=== PATIENT | female | born 1940 | race Caucasian/White ===

== ENCOUNTER → 2018-02-16 | Outpatient (CLI) | payer MEDICARE, OTHER ==
[~2018-02-16] MED LIST: CIP500 PO
== END ==
LOC: RESP 13:31
PROVIDERS: ATTEND Nurse Practitioner Family
DX: J44.9 Chronic obstructive pulmonary disease, unspecified (principal)
CPT/HCPCS: 36415; 82103; 94060; 94726; 94729

== ENCOUNTER 2018-04-20 09:56 | Outpatient (RCR) | payer MEDICARE, OTHER | END 2018-05-17 | LOC: CARD 09:56 | PROVIDERS: ATTEND Nurse Practitioner Family | DX: J44.9 Chronic obstructive pulmonary disease, unspecified (principal) | CPT/HCPCS: G0424 ×17 ==

== ENCOUNTER → 2018-12-02 | Outpatient (CLI) | payer MEDICARE, OTHER ==
[~2018-12-02] MED LIST changes: +AMLO-127 PO; +ASPI-1471 PO; +CHOL10005 PO; +DOCU100C49 PO; +GLUT25PO PO; +KRIL1CAP6 PO; +LACT1CAP9 PO; +LISI2.5T60 PO; +MULT-1335 PO; +OXYGENHOME INH; +PHYT100T4 PO; +TRIA1CAP85 PO; +UBIQ100C3 PO
[2018-12-02 13:06] LABS: PLATELET COUNT, AUTOMATED 233 K/uL (150-450)
== END ==
LOC: LAB 12:30
PROVIDERS: ATTEND Family Medicine
DX: M79.2 Neuralgia and neuritis, unspecified (principal); I10 Essential (primary) hypertension
CPT/HCPCS: 36415; 82040; 82247; 82306; 82310; 82374; 82435; 82565; 82607; 82947; 84075; 84132; 84155; 84295; 84443; 84450; 84460; 84520; 85025

== ENCOUNTER → 2018-12-21 | Outpatient (CLI) | payer MEDICARE, OTHER ==
[~2018-12-21] MED LIST changes: +LEVO750T44 PO; +PRED20TA6 PO
[2018-12-21 11:32] LABS: PLATELET COUNT, AUTOMATED 206 K/uL (150-450)
--- NOTE | 2018-12-21 12:16 | RADIOLOGY IMAGING REPORT ---
[facility] PATIENT NAME: Suki Burroughs : 1940 MR: [id number] V: [id number] EXAM DATE: ORDERING PHYSICIAN: SRIKANTH MORRISON TECHNOLOGIST: Location: [facility] Patient: Suki Burroughs : 1940 Visit/Account:[id number] Date of Sevice: 12/21/2018 Exam type: CHEST PA LAT History: Cough, shortness of breath, low oxygen saturation Comparison: December 23, 2015. Findings: There is mild hyperinflation of the lungs. No evidence of acute appearing infiltrates, pleural effus ions or pulmonary edema.. No evidence of a pneumothorax or pneumomediastinum The cardiac silhouette is mildly enlarged but unchanged. There is a prosthetic cardiac valve. IMPRESSION: 1. Mild cardiomegaly although no evidence of acute pulmonary consolidation or overt pulmonary edema Report Dictated By: Melida Jose MD at 12/21/2018 12:10 PM Report E-Signed By: Melida Jose MD at 12/21/2018 12:11 PM WSN:[id number]
== END ==
LOC: RAD 11:07
PROVIDERS: ATTEND Nurse Practitioner Primary Care
DX: I51.7 Cardiomegaly (principal); R06.02 Shortness of breath
CPT/HCPCS: 36415; 71046; 82040; 82247; 82310; 82374; 82435; 82565; 82947; 84075; 84132; 84155; 84295; 84450; 84460; 84520; 85025

== ENCOUNTER 2019-01-04 11:15 | Inpatient (IN) | payer MEDICARE, OTHER ==
[~2019-01-04] VITALS: Ht 152.4 cm; Wt 72.7 kg
[2019-01-04] VITALS (20 sets, daily range): BP systolic 95–163; BP diastolic 36–111
--- NOTE | 2019-01-04 11:23 | ER Report ---
History and Physical Time Seen By MD: 11:21 HPI/ROS CHIEF COMPLAINT: Shortness of breath HISTORY OF PRESENT ILLNESS: This is a 78-year-old female who presents to the emergency room for shortness breath. Patient states she's been short of breath for roughly a month, was seen in the outpatient clinic, given antibiotics and a steroid, states did have some improvement, however after the antibiotic and the steroids were done she became increasingly short of breath again. She has a nonproductive cough. No fevers or chills. No nausea or vomiting, no chest pain. She does live in [place] in the plantar months, relocates to [place] during the summer months. She also wears continuous oxygen for COPD. REVIEW OF SYSTEMS: Constitutional: No fever, no chills. Eyes: No discharge. ENT: No sore throat. Cardiovascular: No chest pain, no palpitations. Respiratory: As above. Gastrointestinal: No abdominal pain, no vomiting. Genitourinary: No hematuria. Musculoskeletal: No back pain. Skin: No rashes. Neurological: No headache. Allergies: Coded Allergies: tetracycline (Verified Allergy, Severe, RASH DYSPNEA, 12/23/15) Uncoded Allergies: AMMOXICILLIN (Allergy, Severe, RASH DYSPNEA, 12/22/08) COCACOLA (Allergy, Severe, SCLERA EYES SWELLING UP , 12/22/08) Home Meds Active Scripts Prednisone (PREDNISONE) 20 Mg Tablet, 1 TAB PO BID for 5 Days, #10 TAB 0 Refills Prov:SRIKANTH MORRISON DNP, [facility] 12/21/18 Levofloxacin 750 Mg Tab (LEVAQUIN 750 MG TAB) 750 Mg Tablet, 1 TAB PO QDAY for 7 Days, #7 TAB 0 Refills Prov:SRIKANTH MORRISON DNP, [employer] 12/21/18 Reported Medications Aspirin (ASPIR 81) 81 Mg Tablet.dr, 1 TAB PO QHS, TAB 12/02/18 Krill/Om3/Dha/Epa/Om6/Lip/Astx (KRILL OIL 1,000 MG SOFTGEL) 1 Each Capsule, 1 CAP PO DAILY, CAPSULE 12/02/18 Oxygen (OXYGEN) Inha, 2 L INH DIRECTED, L [facility] 12/02/18 Lisinopril (LISINOPRIL) 2.5 Mg Tablet, 1 TAB PO QDAY 12/02/18 Lactobacillus Combo No.10 (PROBIOTIC) Unknown Strength Capsule, 1 CAP PO QHS 07/06/18 Glutathione (GLUTATHIONE) Unknown Strength Powder, 1 CAP PO DAILY 07/06/18 Multivitamin With Minerals (MULTIPLE VITAMIN) Unknown Strength Tablet, 1 TAB PO QDAY 07/06/18 Phytonadione (VITAMIN K) Unknown Strength Tablet, 1 TAB PO DAILY Vit k1 500mcg Vit K2-4 1000mcg Vit k2-7 200mcg 07/06/18 Cholecalciferol (Vitamin D3) (VITAMIN D3) Unknown Strength Tablet, PO QDAY, TAB 07/06/18 Ubiquinol (UBIQUINOL) Unknown Strength Capsule, 150 MG PO DAILY 07/06/18 Amlodipine Besylate (AMLODIPINE BESYLATE) 10 Mg Tablet, 1 TAB PO QHS 07/06/18 Past Medical/Surgical History Patient has a past medical and surgical history of hypertension, aortic valve replacement, emphysema, COPD, hard of hearing, left hip replacement, left rot ator cuff repair. Reviewed Nurses Notes: Yes Hx Smoking: Yes Smoking Status: Former Smoker Constitutional Vital Sign - Last 24 Hours 01/04/19 01/04/19 01/04/19 01/04/19 11:20 11:25 11:25 11:30 Temp 98.2 Pulse 141 137 124 Resp 24 33 20 B/P (MAP) 138/72 (94) 138/72 136/59 (84) Pulse Ox 81 95 92 O2 Delivery Nasal Cannula 01/04/19 01/04/19 01/04/19 01/04/19 11:35 11:40 11:45 11:49 Pulse 129 146 135 Resp 22 27 32 Pulse Ox 94 87 94 93 O2 Delivery Nasal Cannula O2 Flow Rate 5.0 01/04/19 01/04/19 01/04/19 01/04/19 11:49 11:50 11:55 11:55 Pulse 124 131 114 121 Resp 18 15 30 18 Pulse Ox 96 92 01/04/19 01/04/19 01/04/19 01/04/19 12:00 12:05 12:10 12:15 Pulse 116 143 131 126 Resp 15 22 33 51 B/P (MAP) 133/96 (108) Pulse Ox 93 94 94 94 01/04/19 01/04/19 01/04/19 01/04/19 12:20 12:25 12:30 12:35 Pulse 131 114 101 113 Resp 31 30 28 30 B/P (MAP) 95/75 (82) Pulse Ox 92 93 92 94 6/18/19 6/18/19 6/18/19 618/19 12:40 12:45 12:50 12:55 Pulse 121 109 114 111 Resp 17 17 35 21 Pulse Ox 94 94 93 94 6/18/19 6/18/19 6/18/19 6/18/ 13:00 13:05 13:10 13:15 Pulse 114 ? Resp 17 B/P (MAP) 121/76 (91) Pulse Ox 94 6/18/19 6/18/19 6/18/19 6/18/ 13:20 13:24 13:25 13:30 Pulse 128 125 117 Resp 31 16 14 B/P (MAP) 116/68 (84) 109/77 (88) Pulse Ox 93 93 93 6/18/19 6/18/19 6/18/19 618/ 13:35 13:40 13:45 13:50 Pulse 126 114 118 117 Resp 23 27 18 23 Pulse Ox 91 91 91 92 6/18/19 6/18/19 6/18/19 618/19 13:55 13:57 14:00 14:05 Pulse 122 124 138 Resp 30 31 21 B/P (MAP) 90/67 (75) 107/54 (71) 106/92 (97) Pulse Ox 89 92 93 6/18/19 6/18/19 6/18/19 6/18/19 14:10 14:15 14:20 14:25 Pulse 122 122 138 125 Resp 28 24 35 27 B/P (MAP) 132/81 (98) 122/63 (82) 123/80 (94) 117/64 (81) Pulse Ox 92 91 86 91 O2 Delivery Nasal Cannula O2 Flow Rate 5 Physical Exam General Appearance: The patient is alert, has no immediate need for airway protection and no signs of toxicity. Eyes: Pupils equal and round no pallor or injection. ENT, Mouth: Mucous membranes are moist. Respiratory: Diminished lung sounds throughout, minimal air movement. Cardiovascular: Irregular rate and rhythm, no murmurs, clicks or rubs. Gastrointestinal: Abdomen is soft and non tender, no masses, bowel sounds normal. Neurological: Alert and oriented 4. Moving all extremities. Following all commands. No focal neuro deficits. Skin: Warm and dry, no rashes. Musculoskeletal: Neck is supple non tender. Extremities are nontender, nonswollen and have full range of motion. DIFFERENTIAL DIAGNOSIS: After history and physical exam differential diagnosis was considered for shortness of breath including but not limited to pulmonary infectious process, COPD, asthma, pulmonary embolus and congestive heart failure. Medical Decision Making Data Points Result Diagram: 01/04/19 1126 01/04/19 1126 Laboratory Hematology Test 01/04/19 00:00 01/04/19 11:26 Thyroid Stimulating Hormone (TSH) 0.87 uIU/ml (0.46-4.68) Red Blood Count 3.86 M/uL (4.17-5.56) Mean Corpuscular Volume 93.8 fL (80.0-96.0) Mean Corpuscular Hemoglobin 31.1 pg (26.0-33.0) Mean Corpuscular Hemoglobin Concent 33.2 g/dL (32.0-36.0) Red Cell Distribution Width 14.0 % (11.5-14.5) Mean Platelet Volume 7.5 fL (7.2-11.1) Neutrophils (%) (Auto) 75.4 % (39.4-72.5) Lymphocytes (%) (Auto) 16.8 % (17.6-49.6) Monocytes (%) (Auto) 6.9 % (4.1-12.4) Eosinophils (%) (Auto) 0.3 % (0.4-6.7) Basophils (%) (Auto) 0.6 % (0.3-1.4) Nucleated RBC Relative Count (auto) 0.0 /100WBC Neutrophils # (Auto) 9.8 K/uL (2.0-7.4) Lymphocytes # (Auto) 2.2 K/uL (1.3-3.6) Monocytes # (Auto) 0.9 K/uL (0.3-1.0) Eosinophils # (Auto) 0.0 K/uL (0.0-0.5) Basophils # (Auto) 0.1 K/uL (0.0-0.1) Nucleated RBC Absolute Count (auto) 0.00 K/uL D-Dimer Quantitative (PE/DVT) 1.32 ug/ml (0-0.50) Sodium Level 137 mmol/L (137-145) Potassium Level 3.3 mmol/L (3.5-5.0) Chloride Level 94 mmol/L (98-107) Carbon Dioxide Level 30 mmol/L (22-31) Blood Urea Nitrogen 18 mg/dl (7-18) Creatinine 1.40 mg/dl (0.52-1.04) Glomerular Filtration Rate Calc 36.4 Random Glucose 127 mg/dl (75-110) Lactate 1.8 mmol/L (0.7-2.1) Calcium Level 9.1 mg/dl (8.4-10.2) Magnesium Level 2.0 mg/dl (1.7-2.2) Total Bilirubin 0.9 mg/dl (0.2-1.3) Aspartate Amino Transf (AST/SGOT) 30 U/L (0-35) Alanine Aminotransferase (ALT/SGPT) 42 U/L (0-56) Alkaline Phosphatase 88 U/L (0-126) Troponin I 0.033 ng/ml B-Type Natriuretic Peptide 683 pg/ml (0-100) Total Protein 7.6 g/dl (6.3-8.2) Albumin 4.1 g/dl (3.5-5.0) Chemistry Test 01/04/19 00:00 01/04/19 11:26 Thyroid Stimulating Hormone (TSH) 0.87 uIU/ml (0.46-4.68) White Blood Count 13.0 k/uL (4.5-11.0) Red Blood Count 3.86 M/uL (4.17-5.56) Hemoglobin 12.0 g/dL (12.0-16.0) Hematocrit 36.1 % (34.0-47.0) Mean Corpuscular Volume 93.8 fL (80.0-96.0) Mean Corpuscular Hemoglobin 31.1 pg (26.0-33.0) Mean Corpuscular Hemoglobin Concent 33.2 g/dL (32.0-36.0) Red Cell Distribution Width 14.0 % (11.5-14.5) Platelet Count 203 K/uL (150-450) Mean Platelet Volume 7.5 fL (7.2-11.1) Neutrophils (%) (Auto) 75.4 % (39.4-72.5) Lymphocytes (%) (Auto) 16.8 % (17.6-49.6) Monocytes (%) (Auto) 6.9 % (4.1-12.4) Eosinophils (%) (Auto) 0.3 % (0.4-6.7) Basophils (%) (Auto) 0.6 % (0.3-1.4) Nucleated RBC Relative Count (auto) 0.0 /100WBC Neutrophils # (Auto) 9.8 K/uL (2.0-7.4) Lymphocytes # (Auto) 2.2 K/uL (1.3-3.6) Monocytes # (Auto) 0.9 K/uL (0.3-1.0) Eosinophils # (Auto) 0.0 K/uL (0.0-0.5) Basophils # (Auto) 0.1 K/uL (0.0-0.1) Nucleated RBC Absolute Count (auto) 0.00 K/uL D-Dimer Quantitative (PE/DVT) 1.32 ug/ml (0-0.50) Glomerular Filtration Rate Calc 36.4 Lactate 1.8 mmol/L (0.7-2.1) Calcium Level 9.1 mg/dl (8.4-10.2) Magnesium Level 2.0 mg/dl (1.7-2.2) Total Bilirubin 0.9 mg/dl (0.2-1.3) Aspartate Amino Transf (AST/SGOT) 30 U/L (0-35) Alanine Aminotransferase (ALT/SGPT) 42 U/L (0-56) Alkaline Phosphatase 88 U/L (0-126) Troponin I 0.033 ng/ml B-Type Natriuretic Peptide 683 pg/ml (0-100) Total Protein 7.6 g/dl (6.3-8.2) Albumin 4.1 g/dl (3.5-5.0) Coagulation Test 01/04/19 11:26 D-Dimer Quantitative (PE/DVT) 1.32 ug/ml EKG/Imaging EKG Interpretation 12 lead EKG: Time of EKG 1142. Rhythm: Atrial fibrillation, rate of 120 bpm. [place]: normal QRS: normal ST segments: No ST depression or elevation identified. Current EKG is different from the 12/23/2015 EKG, previous EKG showing normal sinus rhythm, with rate of 68 bpm. Imaging PATIENT NAME: Suki Burroughs : 1940 MR: [id number] V: [id number] EXAM DATE: ORDERING PHYSICIAN: ARJUN ROMERO TECHNOLOGIST: Location: [facility] [place] Patient: Suki Burroughs : 1940 Visit/Account:[id number] Date of Sevice: 01/04/2019 CT CTA CHEST W & W/O CON HISTORY: tachy, elevated dimer, eval for PE One of the following dose optimization techniques was utilized in the performance of this exam: Automated exposure control; adjustment of the mA and/or kV according to the patient's size; or use of an iterative reconstruction technique. Specific details can be referenced in the facility's radiology CT exam operational policy. TECHNIQUE: CTA chest with contrast. 3D coronal slab MIPs and 2D reconstructions in the coronal and sagittal planes were also created. CONTRAST: 75 cc of Isovue-370 COMPARISON: None. FINDINGS: Vessels: Well-opacified pulmonary arteries with no pulmonary emboli identified. Atherosclerotic disease within the nonaneurysmal aorta. Heart and pericardium: Aortic valve. Mediastinum and hilum: Negative. Lymph nodes: Negative. Lungs/pleura: Centrilobular emphysematous changes noted throughout both lung olguin. Passive atelectatic lung changes in both lung bases. There is a elliptical pleural-based density seen in the posterior medial aspect of the left lower lobe superior aspect measuring 1.7 x 0.9 cm (image 59 series 5) no add itional parenchymal mass lesions identified. The tracheal and bronchial airways well-maintained. Visualized upper abdomen: Negative. Lower neck: Negative. Bones/soft tissues: Negative. IMPRESSION: 1. Negative CT scan of the chest for pulmonary embolus. 2. Centrilobular emphysematous changes noted throughout both lung olguin with associated passive atelectatic lung changes at both lung bases right slightly greater than left. 3. Pleural-based ellipsoid roundish mass in the superior posterior medial aspect of the left lower lung. Options include short-term 3 month follow-up versus PET and/or CT directed biopsy. Report Dictated By: Min Giron MD at 01/04/2019 1:32 PM Report E-Signed By: Min Giron MD at 01/04/2019 1:48 PM WSN:[id number] PATIENT NAME: Suki Burroughs : 1940 MR: [id number] V: [id number] EXAM DATE: ORDERING PHYSICIAN: ARJUN ROMERO TECHNOLOGIST: Location: [facility] [place] Patient: Suki Burroughs : 1940 Visit/Account:[id number] Date of Sevice: 01/04/2019 Study: Single portable view of the chest. Indication: Shortness of breath Comparison study: December 21, 2018 Technique: Single AP view of the chest demonstrates no evidence of acute infiltrate. There is no evidence of pleural effusion or pneumothorax. The mediastinal, cardiac, and diaphragmatic contours are unremarkable. IMPRESSION: Unremarkable chest. Report Dictated By: Syed Oh at 01/04/2019 12:19 PM Report E-Signed By: Syed Oh at 01/04/2019 12:20 PM WSN:[email or web address] ED Course/Re-evaluation Clinical Indication for ER IV: Hydration, IV Access ED Course The patient was admitted to room. A history and physical obtained. Differential diagnoses were considered. IV was started. A CBC, CMP, lactate, troponin and d- dimer obtained. A 1 L normal saline bolus was given. One DuoNeb administered. 125 mg IV Solu-Medrol.CBC showing white count of 13, left shift, this could represent current infectious process, or from recent steroid use, normal lactate, BNP 683, d-dimer 1.32, troponin 0.033. Single view chest x-ray negative for any acute cardiopulmonary process. EKG showing new-onset atrial fibrillation. Patient did have a positive d-dimer, CT of the chest negative for pulmonary embolus, However does show emphysema, there is also a mass on the left lower lung, urination is a PET scan or repeat CT within 3 months, I did review the results with the patient. Given the patient's outpatient failure, increased shortness of breath, new-onset intrafibrillation I did recommend an admission to the hospital, patient was agreeable, I did speak with Dr. Mayfield, the hospitalist on-call, he is accepting the patient into the hospitalist services for new-onset atrial fibrillation, COPD of the emphysema type and a pulmonary m ass. Given a 20 mg IV diltiazem push, and the patient's rate did improve down from the 130s 120s to 90s to 110. Patient appears more comfortable, she was started on a 5 mg an hour diltiazem drip, blood pressure remained stable. 01/04/2019 12:36:58 pm with the elevated d-dimer I did recommend a CT of the chest to evaluate for pulmonary embolus she has been tachycardic and short of breath. 01/04/2019 1:01:00 pm the patient's GFR is less than 40, he did speak with the radiologist, he unable felt the renal function would be okay, she's received a liter fluid, in addition to this I do feel that the test is warranted, she is tachycardic, new-onset A. fib, and short of breath, with an elevated d-dimer. 01/04/2019 2:22:40 pm I did speak with Dr. Martinez-Bridger the hospitalist individual pension consultant, deciding to either admit to medical floor or ICU at this time. 01/04/2019 2:51:38 pm the patient will be admitted to the ICU, for new onset A. fib, COPD and emphysema. Decision to Disposition Date: Jan 04, 2019 Decision to Disposition Time: 14:51 Depart Departure Latest Vital Signs Vital Signs Date Time Temp Pulse Resp B/P (MAP) Pulse Ox O2 Delivery O2 Flow Rate FiO2 01/04/19 14:25 125 27 117/64 (81) 91 Nasal Cannula 5 01/04/19 11:25 98.2 Impression: Primary Impression: New onset atrial fibrillation Additional Impressions: COPD (chronic obstructive pulmonary disease) Pulmonary mass Condition: Improved Disposition: Admitted from ER Referrals: ZULMA HEAD MD (PCP) Problem Qualifiers Additional Impressions: COPD (chronic obstructive pulmonary disease) COPD type: emphysema Emphysema type: unspecified Qualified Codes: J43.9 - Emphysema, unspecified ARJUN ROMERO DISPLAY MECHANIC- Jan 04, 2019 11:23
[2019-01-04] MEDS ORDERED: NS(*) 0.9% 1000 ML BAG 1,000 ML IV ONE (11:37)
[2019-01-04] MEDS ORDERED: MAGNESIUM SUL* 2 GM/50 ML IVPB 50 ML IVPB ONE (11:40)
[2019-01-04] MEDS ORDERED: methylPREDNIS SUCC 125 MG/2ML IVP ONE (11:40)
[2019-01-04] MEDS ORDERED: ALBUTEROL/IPRATROPIUM 3 ML NEB NEB ONE ×2 (11:40→15:00)
[2019-01-04 11:48] LABS: PLATELET COUNT, AUTOMATED 203 K/uL (150-450)
--- NOTE | 2019-01-04 12:03 | EKG ---
FACILITY: [facility] [place] PATIENT NAME: FRANTZ NAILS : [id number] MR: [id number] V: [id number] EXAM DATE: ORDERING PHYSICIAN: ARJUN ROMERO TECHNOLOGIST: Test Reason : tachycardia Blood Pressure : / mmHG Vent. Rate : 120 BPM Atrial Rate : 156 BPM P-R Int : 000 ms QRS Dur : 082 ms QT Int : 292 ms P-R-T Axes : 000 022 067 degrees QTc Int : 412 ms Atrial fibrillation with rapid ventricular response No previous ECGs available Confirmed by Parmjit Jimenez ([id number]) on 01/04/2019 8:30:25 PM Referred By: Confirmed By:Parmjit Sparks
[2019-01-04] MEDS ORDERED: DILTIAZEM 5 MG/ML 5ML IVPUSH IVP ONE (12:20)
--- NOTE | 2019-01-04 12:27 | RADIOLOGY IMAGING REPORT ---
FACILITY: [facility] [place] PATIENT NAME: Suki Burroughs : 1940 MR: [id number] V: [id number] EXAM DATE: ORDERING PHYSICIAN: ARJUN ROMERO TECHNOLOGIST: Location: [facility] Patient: Suki Burroughs : 1940 Visit/Account:[id number] Date of Sevice: 01/04/2019 Study: Single portable view of the chest. Indication: Shortness of breath Comparison study: December 21, 2018 Technique: Single AP view of the chest demonstrates no evidence of acute infiltrate. There is no evid ence of pleural effusion or pneumothorax. The mediastinal, cardiac, and diaphragmatic contours are un remarkable. IMPRESSION: Unremarkable chest. Report Dictated By: Syed Oh at 01/04/2019 12:19 PM Report E-Signed By: Syed Oh at 01/04/2019 12:20 PM WSN:[email or web address]
[2019-01-04] MEDS ORDERED: IOPAMIDOL 76% 100 ML INFUS BTL 100 ML ONE (12:44)
[2019-01-04] MEDS ORDERED: NS(*) 0.9% 50 ML BAG 50 ML ONE (12:45)
[2019-01-04] MEDS ORDERED: DILTIAZEM HCL 125 MG/25 ML SDV 125 MG in NS(*) 0.9% 100 ML BAG 100 ML IV ONE (13:30)
--- NOTE | 2019-01-04 13:52 | RADIOLOGY IMAGING REPORT ---
[place] [facility] [place] Suki Burroughs : 1940 MR: [id number] V: [id number] EXAM DATE: ORDERING PHYSICIAN: ARJUN ROMERO TECHNOLOGIST: Location: [facility] Patient: Suki Burroughs : 1940 Visit/Account:[id number] Date of Sevice: 01/04/2019 CT CTA CHEST W & W/O CON HISTORY: tachy, elevated dimer, eval for PE One of the following dose optimization techniques was utilized in the performance of this exam: Autom ated exposure control; adjustment of the mA and/or kV according to the patient's size; or use of an i terative reconstruction technique. Specific details can be referenced in the facility's radiology C T exam operational policy. TECHNIQUE: CTA chest with contrast. 3D coronal slab MIPs and 2D reconstructions in the coronal and sagittal planes were also created. CONTRAST: 75 cc of Isovue-370 COMPARISON: None. FINDINGS: Vessels: Well-opacified pulmonary arteries with no pulmonary emboli identified. Atherosclerotic dise ase within the nonaneurysmal aorta. Heart and pericardium: Aortic valve. Mediastinum and hilum: Negative. Lymph nodes: Negative. Lungs/pleura: Centrilobular emphysematous changes noted throughout both lung olguin. Passive atelect atic lung changes in both lung bases. There is a elliptical pleural-based density seen in the posteri or medial aspect of the left lower lobe superior aspect measuring 1.7 x 0.9 cm (image 59 series 5) no additional parenchymal mass lesions identified. The tracheal and bronchial airways well-maintained. Visualized upper abdomen: Negative. Lower neck: Negative. Bones/soft tissues: Negative. IMPRESSION: 1. Negative CT scan of the chest for pulmonary embolus. 2. Centrilobular emphysematous changes noted throughout both lung olguin with associated passive atel ectatic lung changes at both lung bases right slightly greater than left. 3. Pleural-based ellipsoid roundish mass in the superior posterior medial aspect of the left lower jannette ng. Options include short-term 3 month follow-up versus PET and/or CT directed biopsy. Report Dictated By: Min Giron MD at 01/04/2019 1:32 PM Report E-Signed By: Min Giron MD at 01/04/2019 1:48 PM WSN:[id number]
[2019-01-04] MEDS ORDERED: ACETAMINOPHEN 325 MG TAB PO PRN (15:55)
[2019-01-04] MEDS ORDERED: FLUSH 10 ML SYR IVP PRN (15:55)
[2019-01-04] MEDS ORDERED: NS(*) 0.9% 1000 ML BAG 1,000 ML IV PRN (16:00)
[2019-01-04] MEDS: KCL (*) 20 MEQ/100 ML PREMIX 100 ML IV SCH ×2 (16:14→18:21)
[2019-01-04] MEDS ORDERED: ALBUTEROL/IPRATROPIUM 3 ML NEB NEB PRN (19:45)
--- NOTE | 2019-01-04 19:49 | History & Physical ---
History of Present Illness Chief Complaint SOB History of Present Illness 78F presented with 2 weeks SOB. PMHx significant for COPD on O2, HTN, aortic stenosis post TAVR 2016. Reports SOB for a while now maybe 2 weeks. Was seen and given steroid and antibiotic in PCP office. Today had continued SOB and pulse oximeter noted to show 150's for pulse. Presented for evaluation, in ER found to have afib with RVR, elevated d-dimer, elevated creatinine, increased O2 demands. Heart rate slowed come with diltiazem, started on drip. d-dimer elevated but CTA negative for embolism there was incidental LLL rounded density which will need follow up with CT or biopsy. Admitted to ICU for further management. History Problems: (1) COPD (chronic obstructive pulmonary disease) Home Meds Reported Medications Aspirin (ASPIR 81) 81 Mg Tablet.dr, 1 TAB PO QHS, TAB 12/02/18 Krill/Om3/Dha/Epa/Om6/Lip/Astx (KRILL OIL 1,000 MG SOFTGEL) 1 Each Capsule, 1 CAP PO DAILY, CAPSULE 12/02/18 Oxygen (OXYGEN) Inha, 2 L INH DIRECTED, L [facility]xygen 12/02/18 Lactobacillus Combo No.10 (PROBIOTIC) Unknown Strength Capsule, 1 CAP PO QHS 07/06/18 Glutathione (GLUTATHIONE) Unknown Strength Powder, 1 CAP PO DAILY 07/06/18 Phytonadione (VITAMIN K) Unknown Strength Tablet, 1 TAB PO DAILY Vit k1 500mcg Vit K2-4 1000mcg Vit k2-7 200mcg 07/06/18 Cholecalciferol (Vitamin D3) (VITAMIN D3) Unknown Strength Tablet, PO QDAY, TAB 07/06/18 Ubiquinol (UBIQUINOL) Unknown Strength Capsule, 150 MG PO DAILY 07/06/18 Amlodipine Besylate (AMLODIPINE BESYLATE) 10 Mg Tablet, 1 TAB PO QHS 07/06/18 Discontinued Reported Medications Lisinopril (LISINOPRIL) 2.5 Mg Tablet, 1 TAB PO QDAY 12/02/18 Multivitamin With Minerals (MULTIPLE VITAMIN) Unknown Strength Tablet, 1 TAB PO QDAY 07/06/18 Discontinued Scripts Prednisone (PREDNISONE) 20 Mg Tablet, 1 TAB PO BID for 5 Days, #10 TAB 0 Refills Prov:SRIKANTH MORRISON DNP, ADDING MACHINE MECHANIC-BC 12/21/18 Levofloxacin 750 Mg Tab (LEVAQUIN 750 MG TAB) 750 Mg Tablet, 1 TAB PO QDAY for 7 Days, #7 TAB 0 Refills Prov:SRIKANTH MORRISON Perla DNP, ADDING MACHINE MECHANIC-BC 12/21/18 Allergies: Coded Allergies: tetracycline (Verified Allergy, Severe, RASH DYSPNEA, 12/23/15) Uncoded Allergies: AMMOXICILLIN (Allergy, Severe, RASH DYSPNEA, 12/22/08) COCACOLA (Allergy, Severe, SCLERA EYES SWELLING UP , 12/22/08) Patient History: FH: COPD (chronic obstructive pulmonary disease) BROTHER OR SISTER BROTHER OR SISTER FH: type 2 diabetes MOTHER, , Age:75 BROTHER OR SISTER PAT. GRANDMOTHER Hx Smoking: Yes Smoking Status: Former Smoker Exposure to Second Hand Smoke?: No When Quit Tobacco?: 1999 Caffeine Intake: Coffee Caffeine/Cups Per Day: 2 CUPS DAILY Hx Alcohol Use: Yes Alcohol Used: Wine Hx Substance Use Disorder: No Social Drug Use: Never Review of Systems All Systems Reviewed/Normal: Yes, Except as Noted Neurological: No Confusion, No Dizziness Cardiovascular: No Chest Pain, No Palpitations Respiratory: Shortness of Breath Exam Vital Signs Vital Signs Date Time Temp Pulse Resp B/P (MAP) Pulse Ox O2 Delivery O2 Flow Rate FiO2 01/04/19 19:20 91 01/04/19 18:00 26 114/36 (62) Nasal Cannula 5.0 01/04/19 17:30 92 01/04/19 15:30 98.8 General Appearance: Alert, Awake, No Acute Distress, Afebrile Neuro: No Gross deficits ENT: Normal Cardiovascular: Other (irregularly irregular) Respiratory: Other (mild distress, tachypneic, decreased breath sounds b/l) GI: Abd Soft and Non-Tender Musculoskeletal: No Weakness/Pain Extremities: Soft and Non Tender, Warm, Pulses, Perfused, Edema (mild pitting to knees b/l) Medical Decision Making Data Points Result Diagram: 01/04/19 1126 01/04/19 1126 EKG / Imaging EKG Interpretation afib with RVR Monitor Interpretation: Atrial Fibrillation (with RVR) Assessment and Plan Problems: (1) Atrial fibrillation Assessment & Plan: New onset with RVR. Improving on diltiazem. Recommend anticoagulation but she wishes to wait to see if atrial fibrillation continues. BP stable, tachypnea improving. (2) COPD (chronic obstructive pulmonary disease) Assessment & Plan: 2L O2 continuous at altitude, 2-4 L with exertion. Tachypnea improving with rate control. She is not on any inhaled medications. (3) Pulmonary mass Status: Acute Assessment & Plan: Follow up CT in 3 months or consider biopsy of LLL density. (4) CKD (chronic kidney disease) Assessment & Plan: Baseline Cr appears to be 1.1-1.4, monitor. (5) Elevated brain natriuretic peptide (BNP) level Assessment & Plan: Possibly secondary to atrial fibrillation or CKD. Records form 2017 in [place] show normal EF. Venous Thromboembolism Antithrombotics Is Pt On Any Antithrombotics?: Yes Exam Sepsis Risk: No Definite Risk DELACRUZ IVONNE ROUSE DO Jan 04, 2019 19:49
[2019-01-04] MEDS ORDERED: APIXABAN 2.5 MG TABLET PO SCH (21:00)
[2019-01-05] VITALS (13 sets, daily range): BP systolic 98–163; BP diastolic 54–94
[2019-01-05] MEDS ORDERED: DILTIAZEM HCL* 100 MG ADDVIAL 100 MG in NS(*) 0.9% 100 ML ADDVANT BAG 100 ML IV SCH (00:38)
[2019-01-05] MEDS ORDERED: cefTRIAXone 1 GM VIAL IVP ONE (01:25)
[2019-01-05 05:28] LABS: PLATELET COUNT, AUTOMATED 160 K/uL (150-450)
[2019-01-05] MEDS ORDERED: LEVALBUTEROL 1.25 MG/3 ML NEB NEB PRN (07:45)
[2019-01-05] MEDS: LEVALBUTEROL 1.25 MG/3 ML NEB NEB SCH ×3 (07:45→16:55)
[2019-01-05] MEDS ORDERED: DILTIAZEM CD 180 MG CAPCR PO SCH (09:00)
[2019-01-05] MEDS ORDERED: ENOXAPARIN 30 MG/0.3 ML SYR SC SCH (09:00)
--- NOTE | 2019-01-05 09:10 | Antimicrobial Stewardship ---
Antimicrobial Stewardship Empiricly appropriate: Yes Significant PMH: Yes (TAVR, afib, L LEROY (2007), CKD ) Support empiric regimen: Yes (Ceftriaxone 2g IV daily) Approriate Cultures done: No (Blood cultures drawn, only one set, both bottles positive. ID and sens pending) Cultures need repeate: Yes (Recommend repeat cultures at 48 hours) Gram stain show Microbs: Yes (Growing GPC in chains ) Renal/Hepatic dosing: Yes (Scr 1.4, CrCL ~37 ml/min) Determine cumulative duration: 01/05/19- Day 1, today is day 2 of Ceftriaxone Determine standard duration: Depending on source- likely 7-14 days Comment 78 yo F who presented with a month long history of SOB, worsening over the last month. Was seen in outpt clinic and started on antibiotics and steroids. She does have a positive smoking history. Her PMH includes CKD, TAVR 2015, L LEROY 2007, and now afib with RVR, mini stroke in 2017. She was also on lisinopril over a month ago that was stopped due to chronic cough Tmax afebrile WBC 13-10.2 Neuts 75%- 90.8 Scr 1.4 CrCl ~37 ml/min D-dimer 1.32 BNP 683 TSH 0.87 CTA - (-) PE, (+) findings to suggest suspicious mass LLL of the lung In afib with RVR, started on diltiazem drip, switched to oral Discussion about anticoagulation for afib in the setting of TAVR (done at [facility] in 2016) Antibiotics: Ceftriaxone 2g IV daily Blood Cx x 1 pending ID and sens: growing GPC in chains in both anaerobic and aerobic bottles Continue Ceftriaxone 2g IV daily for now, plan to repeat blood cultures tomorrow. Echo done, will await results from cardiology. Plan to complete a UA via straight cath to rule out source of infection (pt is asymptomatic). Will follow and de-escalate as appropriate. Olga Curtis, PharmD, BCOP OLGA CURTIS Jan 05, 2019 08:45
--- NOTE | 2019-01-05 09:40 | Hospitalist Progress Note ---
Subjective Progress Notes Subjective Less SOB since admission. Slept and has an appetite. Physical Exam Vital Signs Date Time Temp Pulse Resp B/P (MAP) Pulse Ox O2 Delivery O2 Flow Rate FiO2 01/05/19 07:21 122/61 (81) 01/05/19 07:20 92 Nasal Cannula 4.0 01/05/19 07:20 92 01/05/19 07:00 97.6 23 Intake and Output 01/05/19 07:01 Intake Total 2408 ml Output Total 950 ml Balance 1458 ml Intake Oral 600 ml IV Total 1808 ml Output Urine Total 950 ml General Appearance: Alert, Awake, No Acute Distress Cardiovascular: Other (irreg irreg, no m/r/g) Respiratory: Other (left insp basilar crackles) Extremities: No Edema Result Diagram: 01/05/1945601/05/19456 Monitor Interpretation: Atrial Fibrillation (with RVR) Assessment and Plan Problems: (1) Atrial fibrillation Assessment & Plan: Presented with 2 days of worsening SOB and noticed a high HR at home into the 140's. New onset with RVR. Rate controlled on diltiazem drip. Switch to oral diltiazem. Start Eliquis and see what her co-pay will be. Echo pending. TSH 0.87. (2) Positive blood culture Status: Acute Assessment & Plan: Only one blood culture drawn, but she is positive in both aerobic and anaerobic within 12 hours of the draw. Afebrile. No infiltrate on CT of chest. UA pending. She was started on Rocephin last night, which will be continued. Echo pending. Recheck blood cultures with CRP tomorrow. She did have a prosthetic hip placed in 2007 and does have the TAVR. (3) COPD (chronic obstructive pulmonary disease) Assessment & Plan: 2L O2 continuous at altitude, 2-4 L with exertion. Tachypnea improving with rate control. She is not on any inhaled medications, but going to start scheduled and prn Xopenex. (4) Elevated brain natriuretic peptide (BNP) level Assessment & Plan: Possibly secondary to atrial fibrillation or CKD. Records form 2017 in [place] show normal EF. Echo pending. Repeat BNP tomorrow. (5) Pulmonary mass Status: Acute Assessment & Plan: Follow up CT in 3 months or consider f/u with Oncology for a possible biopsy of LLL density. The patient was informed and she is going to think about what she wants to do. (6) CKD (chronic kidney disease) Assessment & Plan: Baseline Cr appears to be 1.1-1.4, monitor. Exam Sepsis Risk: No Definite Risk PEMA CASAS MD Jan 05, 2019 09:40
[2019-01-05] MEDS: APIXABAN 2.5 MG TABLET PO SCH ×2 (09:57→20:16)
--- NOTE | 2019-01-05 14:48 | Medical Nutrition Therapy ---
Nutrition Anthropometrics Height (Inches): 60.00 Height (Calculated Centimeters: 152.197385 Weight (Pounds): 156 Weight (Calculated Kilograms): 70.817 BMI: 30.5 Jesus Nutrition Score: Adequate Jesus Nutrition Risk Score: 19 Dietary Referral Nutrition Risk Factors: Nutrition Risk Comment: Physical Findings Physical Appearance: Obese BMI 30-39 Skin Appearance Skin Appearance: Dry Edema Edema Location Modifier: Both Edema Location: Lower Extremity Type of Edema: Degree of Edema: 1+ Gastrointestinal Symptoms GI Symtoms: WNL Tube Present: Bowel Sounds: Recent Bowel Pattern: Stool Characteristics: Nutrition/Food History Good Nutritional Diagnosis Nutritional Risk Acuity 3: COPD Unstable Nutritional Acuity: 3-Mild Energy Requirement: 1465 (MSJ (AF1.3)) Protein Requirement: 57 (57-70 (.8-1g/kg)) Fluid Requirement: 2127 (30mL/kg) Diet Type: Regular Nutrition Monitoring & Eval Nutrition Goals: Eat 75-100% Meal Nutrition Follow-Up: Good Intake RD Patient Assessment Time: [address] Assessment Type: RD Assessment Patient Nutrition Acuity: 3-Mild Follow Up Date: Jan 10, 2019 Nutritional Comment: 01/05/19-Reviewed medical hx. Significant for CKD and AFIB. Cre and BUN were elevated. eGFR 48.4. Pt eating well. Attempted to visit pt x 3. Will continue to monitor intake and tolerance to diet.EDE GOTTLIEB Jan 05, 2019 14:37
[2019-01-05] MEDS ORDERED: DILTIAZEM SR 60 MG CAPCR PO ONE (18:25)
[2019-01-05] MEDS: cefTRIAXone 2 GM VIAL IVP SCH (22:52)
[2019-01-06] VITALS (48 sets, daily range): BP systolic 80–190; BP diastolic 45–94
[2019-01-06] MEDS ORDERED: FUROSEMIDE 20 MG/2 ML VIAL ONE (00:40)
[2019-01-06] MEDS ORDERED: FUROSEMIDE 20 MG/2 ML VIAL IVP ONE (00:50)
[2019-01-06] MEDS: LEVALBUTEROL 1.25 MG/3 ML NEB NEB SCH ×4 (05:21→17:13)
[2019-01-06 05:32] LABS: PLATELET COUNT, AUTOMATED 210 K/uL (150-450)
[2019-01-06] MEDS ORDERED: DILTIAZEM HCL 125 MG/25 ML SDV 125 MG in NS(*) 0.9% 100 ML BAG 100 ML IV ONE ×2 (06:50→08:45)
[2019-01-06] MEDS ORDERED: DILTIAZEM 5 MG/ML 5ML IVPUSH IVP ONE (06:50)
--- NOTE | 2019-01-06 07:17 | RADIOLOGY IMAGING REPORT ---
FACILITY: [facility] - [place] PATIENT NAME: Suki Burroughs : 1940 MR: [id number] V: [id number] EXAM DATE: ORDERING PHYSICIAN: PEMA CASAS TECHNOLOGIST: Location: [facility] [place] Patient: Suki Burroughs : 1940 Visit/Account:[id number] Date of Sevice: 01/06/2019 CHEST SINGLE AP Indication: Shortness of breath Comparison January 04, 2019. Findings: Heart is unchanged in size. Note is made of a TAVR. There is atherosclerosis within the aortic arch. New interstitial opacities within the periphery of the left lung. Right lung is clear. Hyperinflation lungs with chronic interstitial opacities. Probable small left pleural effusion. No gross right effusion. No visualized pneumothorax. IMPRESSION: 1. Interval development of nonspecific opacities within the periphery of the left lung, likely infect ious/inflammatory. 2. Probable new small left pleural effusion which may be reactive. Report Dictated By: Brian Simental MD at 01/06/2019 7:09 AM Report E-Signed By: Brian Simental MD at 01/06/2019 7:12 AM [id number]
[2019-01-06] MEDS ORDERED: NS(*) 0.9% 1000 ML BAG 1,000 ML IV PRN (07:59)
[2019-01-06] MEDS ORDERED: DIGOXIN 0.5 MG/2 ML AMP IVP ONE ×4 (08:10→21:00)
[2019-01-06] MEDS ORDERED: methylPREDNIS SUCC 125 MG/2ML IVP ONE (08:10)
[2019-01-06] MEDS ORDERED: LEVALBUTEROL 1.25 MG/3 ML NEB NEB PRN (08:10)
[2019-01-06] MEDS ORDERED: DIGOXIN 0.5 MG/2 ML AMP ONE (08:19)
[2019-01-06] MEDS ORDERED: methylPREDNIS SUCC 125 MG/2ML ONE (08:19)
--- NOTE | 2019-01-06 08:31 | Hospitalist Progress Note ---
Subjective Progress Notes Subjective She has had persistent dyspnea/wheezing and tachycardia. WBC count up today. Physical Exam Vital Signs Date Time Temp Pulse Resp B/P (MAP) Pulse Ox O2 Delivery O2 Flow Rate FiO2 01/06/19 08:03 135 147/72 (97) 90 High-Flow Nasal Cannula 6.0 01/06/19 07:24 99.1 26 Intake and Output 01/06/19 07:01 Intake Total 996.2 ml Output Total 450 ml Balance 546.2 ml Intake Oral 860 ml IV Total 136.2 ml Output Urine Total 450 ml # Voids 7 General Appearance: Alert, Awake, Other (hard of hearing) Cardiovascular: Other (tachycardic irregular) Respiratory: Other (left basilar rales/diffuse expiratory wheezes) Chest: No Tenderness GI: Soft and Non-Tender Extremities: Warm, Perfused Result Diagram: 01/06/19 0510 01/06/19 05 Monitor Interpretation: Atrial Fibrillation (with RVR) Assessment and Plan Problems: (1) Atrial fibrillation Status: Acute Assessment & Plan: She presented with 2 days of worsening SOB and noticed a high HR at home into the 140's. New onset a-fib with RVR. She has not been rate controlled on oral diltiazem. Switch to back to IV diltiazem and add digoxin today. Started Eliquis. Echocardiogram still pending. TSH in normal range (0.87). (2) Pneumonia Status: Acute Assessment & Plan: Repeat CXR shows left basilar infiltrate. She is currently on IV Rocephin. One of one blood culture is growing GPC. Repeat blood cultures done this AM. Will broaden coverage until culture results back. (3) Positive blood culture Status: Acute Assessment & Plan: Only one blood culture drawn, but she is positive in both aerobic and anaerobic within 12 hours of the draw. No infiltrate on CT of chest, but repeat CXR today shows left basilar infiltrate, so pneumonia is most likely cause. UA unremarkable. She was started on IV Rocephin and will broaden coverage until culture results back. Echo still pending. Recheck blood cul tures this AM. She did have a prosthetic hip placed in 2007 and does have the TAVR. (4) COPD (chronic obstructive pulmonary disease) Assessment & Plan: Will get more aggressive with scheduled and prn Xopenex. Add IV Solu-Medrol as well. Continue supplemental oxygen. (5) Elevated brain natriuretic peptide (BNP) level Assessment & Plan: Possibly secondary to atrial fibrillation or CKD. Records form 2017 show normal EF. Echo still pending. Repeat BNP today is slightly better. (6) Pulmonary mass Status: Acute Assessment & Plan: Follow up CT in 3 months or consider f/u with Oncology for a possible biopsy of LLL density. The patient was informed and she is going to think about what she wants to do. (7) CKD (chronic kidney disease) Assessment & Plan: Baseline Cr appears to be 1.1-1.4, monitor. Exam Sepsis Risk: Sepsis Risk KAT COX MD Jan 06, 2019 08:31
[2019-01-06] MEDS ORDERED: ACETAMINOPHEN(*)1000 MG/100 ML 100 ML IVPB PRN (08:55)
[2019-01-06] MEDS ORDERED: DILTIAZEM CD 120 MG CAPCR PO SCH (09:00)
[2019-01-06] MEDS ORDERED: VANCOMYCIN(*) 1 GM VIAL 1 GM, VANCOMYCIN HCL 0.750 GM VIAL 0.75 GM in NS(*) 0.9% 250 ML... IVPB ONE (09:00)
[2019-01-06] MEDS ORDERED: NS(*) 0.9% 500 ML BAG 500 ML IV PRN (09:00)
[2019-01-06] MEDS: guaiFENesin 600 MG TABCR PO SCH ×2 (10:14→20:35)
[2019-01-06] MEDS: APIXABAN 2.5 MG TABLET PO SCH ×2 (10:14→20:35)
[2019-01-06] MEDS: methylPREDNIS SUCC 125 MG/2ML IVP SCH (16:46)
[2019-01-06] MEDS ORDERED: DILTIAZEM HCL 125 MG/25 ML SDV 125 MG in NS(*) 0.9% 100 ML BAG 100 ML IV SCH (20:30)
[2019-01-06] MEDS ORDERED: VANCOMYCIN(*) 1 GM VIAL 1 GM, VANCOMYCIN (*) 0.5 GM VIAL 0.25 GM in NS(*) 0.9% 250 ML B... IVPB SCH (21:00)
[2019-01-06] MEDS: DIGOXIN 0.5 MG/2 ML AMP ONE (21:00)
[2019-01-06] MEDS: cefTRIAXone 2 GM VIAL IVP SCH (22:48)
[2019-01-07] VITALS (24 sets, daily range): BP systolic 109–149; BP diastolic 46–87
[2019-01-07] MEDS: methylPREDNIS SUCC 125 MG/2ML IVP SCH ×3 (00:55→16:54)
[2019-01-07] MEDS: LEVALBUTEROL 1.25 MG/3 ML NEB NEB SCH ×4 (06:09→16:34)
--- NOTE | 2019-01-07 06:57 | RADIOLOGY IMAGING REPORT ---
FACILITY: [facility] PATIENT NAME: Suki Burroughs : 1940 MR: [id number] V: [id number] EXAM DATE: ORDERING PHYSICIAN: KAT COX TECHNOLOGIST: Location: [facility] Patient: Suki Burroughs : 1940 Visit/Account:[id number] Date of Sevice: 01/07/2019 PORTABLE CHEST: Indication: Pneumonia. Technique: A single frontal film was obtained. Comparison: 01/06/2019 Skeletal and soft tissue structures: Intact and unchanged. Heart and mediastinum: Stable mild cardiomegaly. The aortic valve prosthesis appears unchanged. Lung olguin: Evidence of hyperinflation. There are persistent increased interstitial markings. No foc al consolidation or volume loss is identified. Pleural spaces: Probable small left effusion, unchanged. No evidence of right effusion. Impression: No acute changes. Report Dictated By: Davis Lee MD at 01/07/2019 6:50 AM Report E-Signed By: Davis Lee MD at 01/07/2019 6:53 AM WSN:[id number]
[2019-01-07] MEDS ORDERED: MAGNESIUM HYDROXIDE* 30ML UDCP PO PRN (07:55)
[2019-01-07] MEDS ORDERED: BISACODYL 10 MG SUPP PR PRN (07:55)
[2019-01-07 08:05] LABS: PLATELET COUNT, AUTOMATED 194 K/uL (150-450)
[2019-01-07] MEDS: POLYETHYLENE GLYCOL 17 GM PKT PO SCH (08:21)
[2019-01-07] MEDS: guaiFENesin 600 MG TABCR PO SCH ×2 (08:22→21:18)
[2019-01-07] MEDS: DILTIAZEM CD 120 MG CAPCR PO SCH (08:23)
[2019-01-07] MEDS: APIXABAN 2.5 MG TABLET PO SCH ×2 (08:23→21:18)
[2019-01-07] MEDS: DOCUSATE SODIUM 100 MG CAP PO SCH ×3 (08:23→21:22)
[2019-01-07] MEDS ORDERED: VANCOMYCIN(*) 1 GM VIAL 1 GM in NS(*) 0.9% 250 ML BAG 250 ML IVPB SCH ×2 (09:15→21:00)
--- NOTE | 2019-01-07 09:16 | Hospitalist Progress Note ---
Subjective Progress Notes Subjective This patient was transferred back to the ICU secondary to respiratory distress. She had no acute changes overnight. Patient Complains of: Cardiovascular: No: Chest Pain Respiratory: Cough, Shortness of Breath Physical Exam Vital Signs Date Time Temp Pulse Resp B/P (MAP) Pulse Ox O2 Delivery O2 Flow Rate FiO2 01/07/19 07:12 92 01/07/19 07:07 91 Oxy Mask 7.0 01/07/19 07:00 97.7 22 140/63 (88) 01/07/19 06:00 40.0 Intake and Output 01/07/19 07:01 Intake Total 2498.5 ml Output Total 1200 ml Balance 1298.5 ml Intake Oral 1635 ml IV Total 863.5 ml Output Urine Total 1200 ml Neuro: No Gross deficits Cardiovascular: Other (AFIB) Respiratory: Other (Wheezes) Extremities: No Edema Integumentary: No Cyanosis Result Diagram: 01/07/19 0758 01/06/19 0510 Item Value Date Time Arterial Blood pH 7.43 01/06/19 0949 Arterial Blood Partial Pressure CO2 42 mmHg H 01/06/19 0949 Arterial Blood Partial Pressure O2 99 mmHg *H 01/06/19 0949 Arterial Blood HCO3 27 mmol/L H 01/06/19 0949 Monitor Interpretation: Atrial Fibrillation (with RVR) Assessment and Plan Problems: (1) Atrial fibrillation with RVR Assessment & Plan: She did present with atrial fibrillation and a rapid rate. She was placed on a diltiazem infusion, but then weaned off. She went back in to a rapid rate, and was started back on a diltiazem infusion when she transferred back tot the ICU. She was also treated with a digoxin load. This morning she was on no medication and her rate was controlled. We did start her on oral diltiazem to prevent future episodes. She is on Eliquis for anticoagulation. (2) Bacterial pneumonia Assessment & Plan: Initial chest x-rays and CT scan did not show an infiltrate, but a repeat chest x-ray at the time of her respiratory distress did show a left sided infiltrate. She was started on ceftriaxone, but vancomycin was added secondary to her culture results. (3) Sepsis Assessment & Plan: Her initial blood cultures grew enterococcus. Subsequent cultures are also positive for gram positive cocci. She is on ceftriaxone and vancomycin as above. (4) Acute respiratory failure Assessment & Plan: She did require BiPAP and transfer to the ICU. She is currently on Oxymask. (5) COPD with acute exacerbation Assessment & Plan: She is on treatment with nebulizers and IV steroids. (6) Chronic right heart failure Assessment & Plan: She did have an elevated BNP, but her weights are stable. An echocardiogram showed a preserved ejection fraction, but elevated right heart pressures. (7) Pulmonary mass Status: Acute Assessment & Plan: Follow up CT in 3 months or consider f/u with Oncology for a possible biopsy of LLL density. The patient was informed and she is going to think about what she wants to do. (8) Chronic kidney disease (CKD) stage G3b/A1, moderately decreased glomerular filtration rate (GFR) between 30-44 mL/min/1.73 square meter and albuminuria creatinine ratio less than 30 mg/g Exam Sepsis Risk: No Definite Risk NANCIE VILLARREAL DO Jan 07, 2019 09:16
--- NOTE | 2019-01-07 12:09 | Pharmacy Note ---
Vancomycin Management Note Vanco Dosing Note Patient started on Vanco 01/07/19 with a loading dose of 1750mg, followed by a maintenance dose of 1250mg after 12 hrs. Vanco level drawn 01/07/19 at 0800, 12 hrs after first maint dose (before 3rd total dose) and level was 19.6. Renal function appears to be stable/improving slightly. Dose reduced to 1000mg vanco Q12H with the next level draw scheduled for 01/08/19 at 0800. LYNDSEY VILLEDA Jan 07, 2019 12:09
[2019-01-07] MEDS: cefTRIAXone 2 GM VIAL IVP SCH (23:01)
[2019-01-08 05:53] VITALS: BP 106/73
[2019-01-08] MEDS: LEVALBUTEROL 1.25 MG/3 ML NEB NEB SCH ×4 (06:00→18:20)
[2019-01-08 07:27] VITALS: BP 123/73
[2019-01-08] MEDS: DOCUSATE SODIUM 100 MG CAP PO SCH (08:40)
[2019-01-08] MEDS: guaiFENesin 600 MG TABCR PO SCH ×2 (08:41→20:46)
[2019-01-08] MEDS: APIXABAN 2.5 MG TABLET PO SCH ×2 (08:41→20:46)
[2019-01-08] MEDS: DILTIAZEM CD 120 MG CAPCR PO SCH (08:41)
[2019-01-08] MEDS: cefTRIAXone 2 GM VIAL IVP SCH ×2 (08:43→20:47)
[2019-01-08] MEDS: POLYETHYLENE GLYCOL 17 GM PKT PO SCH (08:43)
[2019-01-08] MEDS: methylPREDNIS SUCC 125 MG/2ML IVP SCH ×2 (08:43→17:30)
--- NOTE | 2019-01-08 10:46 | Pharmacy Note ---
Vancomycin Management Note Vanco Dosing Note Vancomycin Trough was > 23 today so changed to Vancomycin 1 gm IV q18h with the next Trough to be drawn tomorrow at 0800. Renal function is improving. YUKI HDEZ Jan 08, 2019 10:46
[2019-01-08 10:55] VITALS: BP 143/66
--- NOTE | 2019-01-08 13:52 | Hospitalist Progress Note ---
Subjective Progress Notes Subjective 78F admitted for COPD exacerbation and afib with RVR. SAEED overnight, vancomycin therapeutic. Feeling well this am. Patient Complains of: Cardiovascular: No: Palpitations Gastrointestinal: No Nausea, No Vomiting Physical Exam Vital Signs Date Time Temp Pulse Resp B/P (MAP) Pulse Ox O2 Delivery O2 Flow Rate FiO2 01/08/19 13:40 96 High-Flow Nasal Cannula 4.0 01/08/19 13:40 83 18 01/08/19 10:55 97.9 143/66 (91) 01/08/19 08:01 40.0 Intake and Output 01/08/19 07:01 Intake Total 1042 ml Output Total 355 ml Balance 687 ml Intake Oral 773 ml IV Total 269 ml Output Urine Total 355 ml # Voids 1 # Bowel Movements 1 General Appearance: Alert, Awake, No Acute Distress, Afebrile Neuro: No Gross deficits Cardiovascular: Other (irregularly irregular) Respiratory: No Respiratory Distress GI: Soft and Non-Tender Extremities: Soft and Non Tender, Warm, Pulses, Perfused; No Edema Result Diagram: 01/07/19 0758 01/07/19 0758 Monitor Interpretation: Atrial Fibrillation (with RVR) Assessment and Plan Problems: (1) Atrial fibrillation with RVR Assessment & Plan: She did present with atrial fibrillation and a rapid rate. She was placed on a diltiazem infusion, but then weaned off. She went back in to a rapid rate, and was started back on a diltiazem infusion when she transferred back tot the ICU. She was also treated with a digoxin load. We did start her on oral diltiazem to prevent future episodes. She is on Eliquis for anticoagulation. (2) Bacterial pneumonia Assessment & Plan: Initial chest x-rays and CT scan did not show an infiltrate, but a repeat chest x-ray at the time of her respiratory distress did show a left sided infiltrate. She was started on ceftriaxone, but vancomycin was added secondary to her culture results. (3) Sepsis Assessment & Plan: Her initial blood cultures grew enterococcus. Subsequent cultures are also positive for gram positive cocci. She is on ceftriaxone and vancomycin as above. Repeat cultures after being therapeutic on vancomycin drawn 01.08. (4) Acute respiratory failure Assessment & Plan: She did require BiPAP and transfer to the ICU. She is currently on Oxymask. (5) COPD with acute exacerbation Assessment & Plan: She is on treatment with nebulizers and IV steroids. (6) Chronic right heart failure Assessment & Plan: She did have an elevated BNP, but her weights are stable. An echocardiogram showed a preserved ejection fraction, but elevated right heart pressures. (7) Pulmonary mass Status: Acute Assessment & Plan: Follow up CT in 3 months or consider f/u with Oncology for a possible biopsy of LLL density. The patient was informed and she is going to think about what she wants to do. (8) Chronic kidney disease (CKD) stage G3b/A1, moderately decreased glomerular filtration rate (GFR) between 30-44 mL/min/1.73 square meter and albuminuria creatinine ratio less than 30 mg/g Exam Sepsis Risk: Sepsis Risk IVONNE GONZALEZ DO Jan 08, 2019 13:52
[2019-01-08 15:14] VITALS: BP 140/58
[2019-01-08] MEDS: VANCOMYCIN(*) 1 GM VIAL 1 GM in NS(*) 0.9% 250 ML BAG 250 ML IVPB SCH (15:37)
[2019-01-08 18:40] VITALS: BP 125/72
[2019-01-09 00:45] VITALS: BP 128/70
[2019-01-09] MEDS: methylPREDNIS SUCC 125 MG/2ML IVP SCH ×2 (00:51→08:49)
[2019-01-09] MEDS: LEVALBUTEROL 1.25 MG/3 ML NEB NEB SCH ×3 (05:57→13:53)
[2019-01-09 06:03] VITALS: BP 141/72
[2019-01-09 06:51] VITALS: BP 125/72
[2019-01-09 08:17] LABS: PLATELET COUNT, AUTOMATED 243 K/uL (150-450)
[2019-01-09] MEDS: DILTIAZEM CD 120 MG CAPCR PO SCH (08:48)
[2019-01-09] MEDS: DOCUSATE SODIUM 100 MG CAP PO SCH (08:48)
[2019-01-09] MEDS: guaiFENesin 600 MG TABCR PO SCH (08:48)
[2019-01-09] MEDS: APIXABAN 2.5 MG TABLET PO SCH (08:48)
[2019-01-09] MEDS: cefTRIAXone 2 GM VIAL IVP SCH (08:48)
[2019-01-09] MEDS: POLYETHYLENE GLYCOL 17 GM PKT PO SCH (08:49)
[2019-01-09] MEDS: VANCOMYCIN(*) 1 GM VIAL 1 GM in NS(*) 0.9% 250 ML BAG 250 ML IVPB SCH (09:15)
[2019-01-09 11:38] VITALS: BP 138/85
[2019-01-09 14:08] VITALS: BP 158/86
--- NOTE | 2019-01-09 14:11 | Hospitalist Depart ---
Discharge Summary Reason for Hosp/Final Diag: (1) Sepsis Hospital Course & Plan: The patient was admitted with sepsis. She had been having fever and chills at home prior to presenting to [facility] ER. Her initial blood culture (one out of one) on 01/04 grew Enterococcus faecalis. Subsequent cultures drawn on 01/06 were also positive for Enterococcus faecalis. She was initially placed on ceftriaxone. Vancomycin was then added. Repeat blood cul tures were drawn on 01/08 after the patient's vancomycin trough was therapeutic and have been no growth to date. The patient's UA and urine culture were negative and the source of her Enteroccus faecalis is unknown at this time. She did have a TAVR performed at [facility] about 2 years ago. A transthoracic echo performed at [facility] showed now evidence of vegetations. Cardiology at [facility] was consulted on 01/09 and recommended the patient have a transesophageal echocardiogram done as well as infectious disease consultation. The hospitalist service at [facility] agreed to take the patient in transfer to facilitate QUEENIE and ID consultation which are not available at [facility]. The patient and family agreed to transfer. (2) Bacterial pneumonia Hospital Course & Plan: Initial chest x-ray and CT scan did not show an infiltrate, but a repeat chest x-ray at the time of increased respiratory distress did show a left sided infiltrate. The patient was started on ceftriaxone for possible pneumonia. Vancomycin was added secondary to her blood culture results as noted above. She did improve clinically and her WBC dropped from 19.9K to 11.9K at the time of transfer. (3) Atrial fibrillation with RVR Hospital Course & Plan: The patient was initially in atrial fibrillation with RVR. She was placed on a diltiazem infusion, but then weaned off. She was also treated with a digoxin load. She was then placed on oral diltiazem to prevent future episodes of rapid ventricular rate. She was started on Eliquis for anticoagulation. The patient's heart rate remained reasonably well controlled on this regimen at rest with some increase in her heart rate with exertion. (4) Acute respiratory failure Hospital Course & Plan: The patient did require BiPAP and transfer to the ICU initially. She improved and was transferred out to the medical floor. At the time of transfer, she was on 5L per nasal cannula with saturations of 90% (5) COPD with acute exacerbation Hospital Course & Plan: She was placed on treatment with Xopenex (scheduled and prn) and IV steroids. Antibiotics were also started as above. (6) Chronic right heart failure Hospital Course & Plan: She did have an elevated BNP on admission, but her weights were stable. An transthoracic echocardiogram showed a preserved ejection fraction, but elevated right heart pressures. No vegetations were seen. (7) Pulmonary mass Status: Acute Hospital Course & Plan: CT did show a pulmonary mass. Follow up CT in 3 months or consider f/u with Oncology for a possible biopsy of LLL density was recommended The patient was informed and she was considering what she wanted to do at the time of transfer. (8) Chronic kidney disease (CKD) stage G3b/A1, moderately decreased glomerular filtration rate (GFR) between 30-44 mL/min/1.73 square meter and albuminuria creatinine ratio less than 30 mg/g Status: Chronic (9) Aortic valve prosthesis present Status: Chronic Hospital Course & Plan: The patient had a TAVR performed about 2 years ago per her report at [facility]. Departure Weight (Pounds): 158 Weight (Ounces): 6.0 Result Diagram: 01/09/19 0805 01/07/19 0758 Condition: No Change Discharge: Another Hospital Time Spent: < 30 min Discharge Instructions Home Meds Reported Medications Aspirin (ASPIR 81) 81 Mg Tablet., 1 TAB PO QHS, TAB 12/02/18 Krill/Om3/Dha/Epa/Om6/Lip/Astx (KRILL OIL 1,000 MG SOFTGEL) 1 Each Capsule, 1 CAP PO DAILY, CAPSULE 12/02/18 Oxygen (OXYGEN) Inha, 2 L INH DIRECTED, L [facility] Oxygen 12/02/18 Lactobacillus Combo No.10 (PROBIOTIC) Unknown Strength Capsule, 1 CAP PO QHS 07/06/18 Glutathione (GLUTATHIONE) Unknown Strength Powder, 1 CAP PO DAILY 07/06/18 Phytonadione (VITAMIN K) Unknown Strength Tablet, 1 TAB PO DAILY Vit k1 500mcg Vit K2-4 1000mcg Vit k2-7 200mcg 07/06/18 Cholecalciferol (Vitamin D3) (VITAMIN D3) Unknown Strength Tablet, PO QDAY, TAB 07/06/18 Ubiquinol (UBIQUINOL) Unknown Strength Capsule, 150 MG PO DAILY 07/06/18 Amlodipine Besylate (AMLODIPINE BESYLATE) 10 Mg Tablet, 1 TAB PO QHS 07/06/18 Discontinued Reported Medications Lisinopril (LISINOPRIL) 2.5 Mg Tablet, 1 TAB PO QDAY 12/02/18 Multivitamin With Minerals (MULTIPLE VITAMIN) Unknown Strength Tablet, 1 TAB PO QDAY 07/06/18 Discontinued Scripts Prednisone (PREDNISONE) 20 Mg Tablet, 1 TAB PO BID for 5 Days, #10 TAB 0 Refills Prov:SRIKANTH MORRISON DNP, [facility]- 12/21/18 Levofloxacin 750 Mg Tab (LEVAQUIN 750 MG TAB) 750 Mg Tablet, 1 TAB PO QDAY for 7 Days, #7 TAB 0 Refills Prov:SRIKANTH MORRISON DNP, [facility]- 12/21/18 Diet: Regular Activity: As Tolerated Special Instructions: The patient will be transferred to [facility] hospitalist service for facilitation of Cardiology and ID consultation and transesophageal echo for evaluation of Enterococcus faecalis bacteremia without obvious source of infection. Copies to: ZULMA HEAD MD ; Venous Thromboembolism Antithrombotics Is Pt On Any Antithrombotics?: Yes LINK COX MD Jan 09, 2019 14:11
== END 2019-01-09 15:10 | disposition short-term general hospital (02) | DRG 871 ==
LOC: ER 11:20 → ICU 14:51 → MED 01-05 14:30 → ICU 01-06 09:30 → MED 01-07 19:20
PROVIDERS: ADMIT Internal Medicine; ATTEND Internal Medicine
PROC: 5A09357 Assistance with Respiratory Ventilation, Less than 24 Consecutive Hours, Continuous Positive Airway Pressure (ICD-10-PCS; principal; 2019-01-04)
DX: A41.81 Sepsis due to Enterococcus (principal); J15.9 Unspecified bacterial pneumonia; J96.00 Acute respiratory failure, unspecified whether with hypoxia or hypercapnia; J44.0 Chronic obstructive pulmonary disease with (acute) lower respiratory infection; J44.1 Chronic obstructive pulmonary disease with (acute) exacerbation; I13.0 Hypertensive heart and chronic kidney disease with heart failure and stage 1 through stage 4 chronic kidney disease, or unspecified chronic kidney disease; I48.2 Chronic atrial fibrillation; I50.812 Chronic right heart failure; N18.3 Chronic kidney disease, stage 3 (moderate); R91.8 Other nonspecific abnormal finding of lung field; Z95.2 Presence of prosthetic heart valve; Z99.81 Dependence on supplemental oxygen; Z88.1 Allergy status to other antibiotic agents; Z87.891 Personal history of nicotine dependence; Z96.642 Presence of left artificial hip joint; Z90.710 Acquired absence of both cervix and uterus; Z86.73 Personal history of transient ischemic attack (TIA), and cerebral infarction without residual deficits
CPT/HCPCS: 36415; 36600; 71045; 71275; 80162; 80202; 81001; 82040; 82247; 82310; 82374; 82435; 82565; 82803; 82947; 83605; 83735; 83880; 84075; 84132; 84155; 84295; 84443; 84450; 84460; 84484; 84520; 85025; 85379; 86140; 87040; 87070; 87077; 87088; 87186; 87205; 93005; 93306; 94640; 94660; 94667; 94668; 96365; 96367; 96375; 99285; C1758; J0131; J0696; J1160; J1940; J2930; J3370; J3475; J3480; J3490; J7030; J7040; J7050; Q9967

== ENCOUNTER 2019-01-05 16:03 | Outpatient (RCR) | payer MEDICARE, OTHER ==
[2019-01-12] MEDS ORDERED: DOCU-416 PO (15:07)
[2019-01-12] MEDS ORDERED: APIX5TAB PO (15:07)
[2019-01-12] MEDS ORDERED: CARB1DRO24 OP (15:07)
[2019-01-12] MEDS ORDERED: CEFT2VIA IJ (15:07)
[2019-01-12] MEDS ORDERED: VERA360C6 PO (15:07)
[2019-01-12] MEDS ORDERED: VANC1.2526 IV (15:07)
[2019-01-12] MEDS ORDERED: VANC1VIA12 IV (15:11)
[2019-01-15] MEDS ORDERED: GUAI600T57 PO (10:41)
[2019-01-15] MEDS ORDERED: FURO20TA19 PO (10:41)
--- NOTE | 2019-01-18 16:08 | Transitional Care Management ---
Assessment Visit Type: Telephone Visit Respiratory: WNL Except Respiratory Comment: 01/18 doing better, still progressing slowly Feeling of Well Being: WNL Socialization: WNL Scheduled Follow-Up with Provi: Yes (sees burnisher and bumper 01/19) TCM Discharge Criteria Transitional Care Comment: 01/05 interested in COPD teaching though most was review. Early recognition stressed. REview coumadin vs. eliquis use for new a fib. 01/07 spoke with patient and answered questions she had from booklet 01/18 called and spoke with patient, she is home now after transfer to another hospital. She reports that she is doing much better and that she is going into [facility] daily for two antibiotics. She had a question of where her blood infection came from, discussed this with her. She agrees to weekly calls to ensure she continues doing well. Copies to: ZULMA HEAD MD ; DIVINA PÉREZ Jan 18, 2019 16:08
[2019-01-24] MEDS ORDERED: IPRA3AMP10 IH ×4 (16:00→17:58)
[2019-01-24] MEDS ORDERED: PRED20TA6 PO (16:00)
[2019-01-24] MEDS ORDERED: METH4TAB66 PO (16:09)
--- NOTE | 2019-01-27 13:28 | Transitional Care Management ---
Assessment Visit Type: Telephone Visit Spoke with: Suki Cardiac: WNL Respiratory: WNL Except Respiratory Comment: 01/18 doing better, still progressing slowly 01/27 went to ER on 01/24 for SOB, doing better now. Still using oxygen. Has nebulizer at home now, using 3 times a day. Concerned that meds aren't quite right due to so many doctors doing different things. GI: Nutrition: WNL GI Comment: 01/27 eating well Wt Gain/Loss: WNL : WNL Musculoskeletal, Exercise: WNL Mobility/Falls: WNL Integumentary: WNL Feeling of Well Being: WNL Socialization: WNL Scheduled Follow-Up with Provi: Yes (sees Dr Head 02/15, and ID doctor on 02/02) TCM Discharge Criteria Transitional Care Comment: 01/05 interested in COPD teaching though most was review. Early recognition stressed. REview coumadin vs. eliquis use for new a fib. 01/07 spoke with patient and answered questions she had from booklet 01/18 called and spoke with patient, she is home now after transfer to another hospital. She reports that she is doing much better and that she is going into [facility] daily for two antibiotics. She had a question of where her blood infection came from, discussed this with her. She agrees to weekly calls to ensure she continues doing well. 01/27 Suki went to the ER 01/24 but reports feeling better now. Reports she has a nebulizer now and is using 3 times a day, educated. Suki is still receiving infusions through [facility] until Feb 19. Still using oxygen. Overall she has a feeling of things getting better. Copies to: ZULMA HEAD MD ; DIVINA PÉREZ Jan 27, 2019 13:28
[2019-02-01] MEDS ORDERED: VERA360C6 PO (10:43)
--- NOTE | 2019-02-02 13:21 | Transitional Care Management ---
Assessment Visit Type: Telephone Visit Spoke with: Suki Cardiac: WNL Cardiac Comment: 02/02 reports swelling is gone Respiratory: WNL Except Respiratory Comment: 01/18 doing better, still progressing slowly 01/27 went to ER on 01/24 for SOB, doing better now. Still using oxygen. Has nebulizer at home now, using 3 times a day. Concerned that meds aren't quite right due to so many doctors doing different things. 02/02 doing much better, has been able to decrease inhaler and nebulizer use GI: Nutrition: WNL GI Comment: 01/27 eating well Wt Gain/Loss: WNL : WNL Musculoskeletal, Exercise: WNL Mobility/Falls: WNL Integumentary: WNL Feeling of Well Being: WNL Socialization: WNL Scheduled Follow-Up with [facility]: Yes (sees Dr Head 02/15, and ID doctor on 02/02) TCM Discharge Criteria Transitional Care Comment: 01/05 interested in COPD teaching though most was review. Early recognition stressed. REview coumadin vs. eliquis use for new a fib. 01/07 spoke with patient and answered questions she had from booklet 01/18 called and spoke with patient, she is home now after transfer to another hospital. She reports that she is doing much better and that she is going into [facility] daily for two antibiotics. She had a question of where her blood infection came from, discussed this with her. She agrees to weekly calls to ensure she continues doing well. 01/27 Suki went to the ER 01/24 but reports feeling better now. Reports she has a nebulizer now and is using 3 times a day, educated. Suki is still receiving infusions through [facility] until Feb 19. Still using oxygen. Overall she has a feeling of things getting better. 02/02 phone call was cut short due to poor cell administrative assistant receptionist as Suki is headed to [place] for I&D doctor appt. She reports doing much better. Breathing is better and she does not need to use rescue inhaler or nebulizer very often anymore. Copies to: ZULMA HEAD MD ; DIVINA PÉREZ Feb 02, 2019 13:21
[2019-02-09] MEDS ORDERED: AMLO-127 PO (18:24)
[2019-02-09] MEDS ORDERED: METO50TA19 PO (18:24)
--- NOTE | 2019-02-11 11:40 | Transitional Care Management ---
Assessment Visit Type: Telephone Visit Spoke with: Suki Cardiac: WNL Cardiac Comment: 02/02 reports swelling is gone 02/11 reports medications have been changed by pricer and Dr. Head, she is a little confused about what she is supposed to take and what she is not. She has run out of a prescription (verapemil) that she started after leaving [facility] and states Dr. Head wants her to stop it. She also wondered if she is supposed to be taking the "water pill" from the pricer now that medications have been changed by Dr. Head. Told her to ask Dr Head at her appointment next week to make sure, however I did not see it on her med rec from last appointment. She sees the pricer again on 02/[address] Head on 02/15 Respiratory: WNL Except Respiratory Comment: 01/18 doing better, still progressing slowly 01/27 went to ER on 01/24 for SOB, doing better now. Still using oxygen. Has nebulizer at home now, using 3 times a day. Concerned that meds aren't quite right due to so many doctors doing different things. 02/02 doing much better, has been able to decrease inhaler and nebulizer use GI: Nutrition: WNL GI Comment: 01/27 eating well Wt Gain/Loss: WNL : WNL Musculoskeletal, Exercise: WNL Mobility/Falls: WNL Integumentary: WNL Feeling of Well Being: WNL Socialization: WNL Scheduled Follow-Up with [facility]: Yes (sees Dr Head 02/15, and pricer 02/18) TCM Discharge Criteria Transitional Care Comment: 01/05 interested in COPD teaching though most was review. Early recognition stressed. REview coumadin vs. eliquis use for new a fib. 01/07 spoke with patient and answered questions she had from booklet 01/18 called and spoke with patient, she is home now after transfer to another hospital. She reports that she is doing much better and that she is going into [facility] daily for two antibiotics. She had a question of where her blood infection came from, discussed this with her. She agrees to weekly calls to ensure she continues doing well. 01/27 Suki went to the ER 01/24 but reports feeling better now. Reports she has a nebulizer now and is using 3 times a day, educated. Suki is still receiving infusions through [facility] until Feb 19. Still using oxygen. Overall she has a feeling of things getting better. 02/02 phone call was cut short due to poor cell administrative assistant receptionist as Suki is headed to [place] for I&D doctor appt. She reports doing much better. Breathing is better and she does not need to use rescue inhaler or nebulizer very often anymore. 02/11 uSki reports doing well. She did not find the appointment with the I&D doctor beneficial as he did not give her much information. Her main concern was over blood pressure medications which have been confusing for her. Will call her again after her next appointments. Copies to: ZULMA HEAD MD ; DIVINA PÉREZ Feb 11, 2019 11:40
[2019-02-15] MEDS ORDERED: POTA-23 PO (15:09)
--- NOTE | 2019-02-23 12:45 | Transitional Care Management ---
Assessment Visit Type: Telephone Visit Spoke with: Suki Cardiac: WNL Cardiac Comment: 02/02 reports swelling is gone 02/11 reports medications have been changed by rug clipper and Dr. Oliveira, she is a little confused about what she is supposed to take and what she is not. She has run out of a prescription (verapemil) that she started after leaving [facility] and states Dr. Oliveira wants her to stop it. She also wondered if she is supposed to be taking the "water pill" from the rug clipper now that medications have been changed by Dr. Oliveira. Told her to ask Dr Oliveira at her appointment next week to make sure, however I did not see it on her med rec from last appointment. She sees the rug clipper again on 02/[address] Oliveira on 02/15 02/23 has meds straightened out now, sees rug clipper again in a month Respiratory: WNL Except Respiratory Comment: 01/18 doing better, still progressing slowly 01/27 went to ER on 01/24 for SOB, doing better now. Still using oxygen. Has nebulizer at home now, using 3 times a day. Concerned that meds aren't quite right due to so many doctors doing different things. 02/02 doing much better, has been able to decrease inhaler and nebulizer use 02/23 sees golf course patroller and gets repeat CT soon. Using O2 at 2L at rest and 3-4L with lots of activity GI: Nutrition: WNL GI Comment: 01/27 eating well Wt Gain/Loss: WNL : WNL Musculoskeletal, Exercise: WNL Mobility/Falls: WNL Integumentary: WNL Feeling of Well Being: WNL Socialization: WNL Scheduled Follow-Up with [facility]: Yes (sees Dr Oliveira 02/15, and rug clipper 02/18) TCM Discharge Criteria Transitional Care Comment: 01/05 interested in COPD teaching though most was review. Early recognition stressed. REview coumadin vs. eliquis use for new a fib. 01/07 spoke with patient and answered questions she had from booklet 01/18 called and spoke with patient, she is home now after transfer to another hospital. She reports that she is doing much better and that she is going into [facility] daily for two antibiotics. She had a question of where her blood infection came from, discussed this with her. She agrees to weekly calls to ensure she continues doing well. 01/27 Suki went to the ER 01/24 but reports feeling better now. Reports she has a nebulizer now and is using 3 times a day, educated. Suki is still receiving infusions through [facility] until Feb 19. Still using oxygen. Overall she has a feeling of things getting better. 02/02 phone call was cut short due to poor cell bookkeeper receptionist as Suki is headed to [place] for I&D doctor appt. She reports doing much better. Breathing is better and she does not need to use rescue inhaler or nebulizer very often anymore. 02/11 Suki reports doing well. She did not find the appointment with the I&D doctor beneficial as he did not give her much information. Her main concern was over blood pressure medications which have been confusing for her. Will call her again after her next appointments. 02/23 overall doing much better. Done with antibiotics and no longer has PICC line. Getting financial assistance for medications. Will discharge from program. SEPTEMBERDIVINA Feb 23, 2019 12:45
== END 2019-02-23 16:05 | disposition home or self-care (01) ==
LOC: TCM 16:03
PROVIDERS: ATTEND Nurse Practitioner
DX: Z02.9 Encounter for administrative examinations, unspecified (principal)

== ENCOUNTER → 2019-01-09 | Outpatient (CLI) | payer MEDICARE, OTHER ==
[~2019-01-09] MED LIST changes: +APIX5TAB PO; +CARB1DRO24 OP; +CEFT2VIA IJ; +DOCU-416 PO; +FURO20TA19 PO; +GUAI600T57 PO; +VANC1.2526 IV; +VANC1VIA12 IV; +VERA360C6 PO
== END ==
LOC: AMB 14:56
PROVIDERS: ATTEND Nurse Practitioner
DX: J18.9 Pneumonia, unspecified organism (principal); R06.00 Dyspnea, unspecified
CPT/HCPCS: A0425; A0426

== ENCOUNTER 2019-01-24 12:46 | Emergency (ER) | payer MEDICARE, OTHER ==
--- NOTE | 2019-01-24 12:53 | ER Report ---
History and Physical Time Seen By MD: 12:51 HPI/ROS CHIEF COMPLAINT: Shortness of breath HISTORY OF PRESENT ILLNESS: 78-year-old female patient presents to emergency room with complaint of shortness of breath. Patient states that she has had worsening shortness breath over last 24 hours. Rest and states that they do live [place] outside of town and is concerned about driving back there and then needing to drive back in. Patient states she's had a difficult time recently with her health. She had an onset of A. fib, she also developed bacteremia. She was admitted to the hospital and also transfer down to [place]. She was discharged on January 11. She is follow-up with pulmonology as well as cardiology since she's been discharged. I did want to start her on an inhaler, however she was not able to afford it as a cost $500 a month. Patient also has been started on Lasix and potassium. Patient is a 6 she's not able to give any breath in. She denies any fevers, chills, nausea, vomiting or diarrhea. Patient does have a PICC line in is currently getting vancomycin IV and will until February 19. REVIEW OF SYSTEMS: Respiratory: As noted above Cardiovascular: No chest pain, no palpitations. Gastrointestinal: No vomiting, no abdominal pain. Musculoskeletal: No back pain. Allergies: Coded Allergies: amoxicillin (Verified Allergy, Severe, rash, dyspnea, 01/06/19) tetracycline (Verified Allergy, Severe, RASH DYSPNEA, 12/23/15) Uncoded Allergies: COCACOLA (Allergy, Severe, SCLERA EYES SWELLING UP , 12/22/08) Home Meds Active Scripts Ipratropium/Albuterol Sulfate (IPRAT-ALBUT 0.5-3(2.5) MG/3 ML) 3 Ml Ampul.neb, 3 ML IH Q4-6H PRN for SHORTNESS OF BREATH, #30 VIAL Prov:GARETT VILLAVICENCIO [facility] 01/24/19 Ipratropium/Albuterol Sulfate (IPRAT-ALBUT 0.5-3(2.5) MG/3 ML) 3 Ml Ampul.neb, 3 ML IH Q4-6H PRN for SHORTNESS OF BREATH, #20 VIAL Prov:GARETT VILLAVICENCIO [facility] 01/24/19 Ipratropium/Albuterol Sulfate (IPRAT-ALBUT 0.5-3(2.5) MG/3 ML) 3 Ml Ampul.neb, 3 ML IH Q4-6H PRN for SHORTNESS OF BREATH, #20 VIAL Prov:GARETT VILLAVICENCIO [facility] 01/24/19 Methylprednisolone (METHYLPREDNISOLONE) 4 Mg Tab.ds.pk, 4 MG PO DIRECTED, #21 TAB Prov:GARETT VILLAVICENCIO [facility] 01/24/19 Reported Medications Furosemide (LASIX) 20 Mg Tablet, 1 TAB PO QDAY, TAB 01/15/19 Guaifenesin (MUCINEX) 600 Mg Tablet.er, 600 MG PO 01/15/19 Vancomycin Hcl 1 Gm Vial (VANCOMYCIN HCL) 1 Gm Vial, 1 GM IV DAILY 01/12/19 Carboxymethylcellulose Sodium (THERA TEARS) 1 Each Droperette, 1 DROP OP HS 01/12/19 Docusate Sodium (COLACE) 100 Mg Capsule, 1 CAP PO DAILY, CAPSULE 01/12/19 Verapamil Hcl (VERAPAMIL HCL) 360 Mg Cap24h.pel, 1 CAP PO DAILY 01/12/19 Apixaban (ELIQUIS) 5 Mg Tablet, 1 TAB PO BID 01/12/19 Ceftriaxone Sodium (CEFTRIAXONE) 2 Gm Vial, 2 GM IJ DAILY Through 02/19/19 01/12/19 Aspirin (ASPIR 81) 81 Mg Tablet.dr, 1 TAB PO QHS, TAB 12/02/18 Krill/Om3/Dha/Epa/Om6/Lip/Astx (KRILL OIL 1,000 MG SOFTGEL) 1 Each Capsule, 1 CAP PO DAILY, CAPSULE 12/02/18 Oxygen (OXYGEN) Inha, 2 L INH DIRECTED, L [facility] O[facility] 12/02/18 Lactobacillus Combo No.10 (PROBIOTIC) Unknown Strength Capsule, 1 CAP PO QHS 07/06/18 Glutathione (GLUTATHIONE) Unknown Strength Powder, 1 CAP PO DAILY 07/06/18 Cholecalciferol (Vitamin D3) (VITAMIN D3) Unknown Strength Tablet, 1000 UNITS PO QDAY 07/06/18 Ubiquinol (UBIQUINOL) Unknown Strength Capsule, 150 MG PO DAILY 07/06/18 Discontinued Scripts Prednisone (PREDNISONE) 20 Mg Tablet, 20 MG PO BID, #10 TAB Prov:GARETT VILLAVICENCIO [facility] 01/24/19 Past Medical/Surgical History Patient has a past medical history of TIA, A. fib with rapid ventricular response, CHF, emphysema, pneumonia, COPD, alcohol use. Patient has surgical history of aortic valve replacement, hysterectomy, left hip replacement, left rotator cuff surgery. Reviewed Nurses Notes: Yes Hx Smoking: Yes Smoking Status: Former Smoker Exposure to Second Hand Smoke?: No Hx Alcohol Use: Yes Constitutional Vital Sign - Last 24 Hours 01/24/19 01/24/19 01/24/19 01/24/19 12:50 12:50 13:00 13:12 Temp 98.3 Pulse 78 76 Resp 20 28 B/P (MAP) 150/82 139/79 (99) Pulse Ox 94 96 96 O2 Delivery Nasal Cannula Nasal Cannula O2 Flow Rate 5.0 5.0 01/24/19 01/24/19 01/24/19 01/24/19 13:12 13:15 13:17 13:17 Pulse 76 88 74 Resp 16 14 16 Pulse Ox 94 95 O2 Delivery Nasal Cannula O2 Flow Rate 4.0 01/24/19 01/24/19 01/24/19 01/24/19 13:30 14:00 14:15 14:30 Pulse 78 85 88 84 Resp 23 15 40 20 B/P (MAP) 146/71 (96) 151/78 (102) 145/63 (90) Pulse Ox 92 90 90 92 01/24/19 01/24/19 01/24/19 01/24/19 14:45 15:00 15:15 15:30 Pulse 75 82 86 99 Resp 15 17 11 19 B/P (MAP) 132/75 (94) 139/67 (91) Pulse Ox 91 90 87 90 01/24/19 01/24/19 01/24/19 01/24/19 15:35 15:40 15:45 15:50 Pulse 86 86 76 81 Resp 17 18 19 18 Pulse Ox 90 88 89 88 01/24/19 01/24/19 15:55 16:00 Pulse 81 106 Resp 21 16 B/P (MAP) 141/83 (102) Pulse Ox 92 86 Physical Exam General Appearance: The patient is alert, has no immediate need for airway protection and no current signs of toxicity. Respiratory: Chest is non tender, lungs are diminished to auscultation. Cardiac: regular rate and rhythm Gastrointestinal: Abdomen is soft and non tender, no masses, bowel sounds normal. Musculoskeletal: Neck: Neck is supple and non tender. Extremities have full range of motion and are non tender. Skin: No rashes or lesions. DIFFERENTIAL DIAGNOSIS: After history and physical exam differential diagnosis was considered for shortness of breath including but not limited to pulmonary infectious process, COPD, asthma, pulmonary embolus and congestive heart failure. Medical Decision Making Data Points Laboratory Hematology Test 01/24/19 08:25 01/24/19 13:00 Troponin I 0.017 ng/ml D-Dimer Quantitative (PE/DVT) 1.01 ug/ml (0-0.50) B-Type Natriuretic Peptide 291 pg/ml (0-100) Chemistry Test 01/24/19 08:25 01/24/19 13:00 Troponin I 0.017 ng/ml D-Dimer Quantitative (PE/DVT) 1.01 ug/ml (0-0.50) B-Type Natriuretic Peptide 291 pg/ml (0-100) Coagulation Test 01/24/19 13:00 D-Dimer Quantitative (PE/DVT) 1.01 ug/ml EKG/Imaging EKG Interpretation 12 lead EKG: Rhythm: A. fib with ventricular rate of 82 bpm [place]: normal QRS: normal ST segments: normal Imaging CT angiogram chest with contrast Indication: Shortness of breath. Elevated d-dimer. Comparison: 01/04/2019. Technique: Axial CT images are obtained through the chest after administration of 75 mL Isovue 370 IV contrast. Reformatted coronal and sagittal images were reviewed as well as coronal MIP images. One of the following dose optimization techniques was utilized in the performance of this exam: automated exposure control; adjustment of the mA and/or kV according to the patient's size; or use of an iterative reconstruction technique. Specific details can be referenced in the facility's radiology CT exam operational policy. FINDINGS: No evidence of filling defect within the pulmonary vasculature to suggest pulmonary embolus. The heart is upper limits normal for size without pericardial effusion. Aorta valve replacement changes. Mild coronary artery calcifications. The aorta shows atherosclerotic calcific changes without aneurysm or dissection. The mediastinum and hilar regions show several small stable lymph nodes. No enlarged lymph nodes or abnormal density. There is no small bilateral pleural effusions associated atelectasis. The posterior medial left lower lobe again shows a 1.7 x 1.0 cm soft tissue mass along the pleural surface. This is similar to the previous examination. This mass shows no calcifications. The lungs again show emphysematous changes. Mild scarring seen in both lungs. No focal consolidations or pneumothorax. No other nodules. No focal interstitial opacities. Airways are clear. Bony structures show no acute fractures or aggressive bony lesions. Mild degenerative change seen spine. Chest wall shows no enlarged axillary lymph nodes or masses. The proximal abdominal aorta does show mild aneurysmal dilatation of 3.2 x 2.8 cm. This area was not imaged previously. There is no acute abnormality or surrounding inflammation/fluid. The upper abdomen is otherwise unremarkable. IMPRESSION: 1. No evidence of pulmonary embolus. 2. There is now bilateral small pleural effusions with associated atelectasis. No focal infiltrate. Continued emphysematous changes to the lungs. 3. The posterior medial left lower lobe does show a stable pleural-based 1.7 cm soft tissue mass. No discrete other nodules are identified. On this exam, cannot exclude a neoplasm. 4. 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 5. Other chronic findings as above. Report Dictated By: Anup Samuels at 01/24/2019 2:17 PM Report E-Signed By: Anup Samuels at 01/24/2019 2:29 PM ED Course/Re-evaluation ED Course Patient was admitted to exam room, history and physical were obtained. Differential diagnoses were considered. On examination lungs are diminished throughout. Heart is regular, abdomen is soft nontender. Patient had had lab work done by her primary care provider prior to coming over to the emergency room. The CBC and CMP were unremarkable. A d-dimer, troponin, BNP were added. An EKG was also done. Patient had an elevated d-dimer of 1.01. Troponin was negative, BNP was 2:30. The significant improvement from when she was admitted to the hospital on 618, at that time her BNP was 600. Due to the elevated d- dimer a CT pulmonary angiogram was done. The results were negative for any pulmonary emboli, she did have small pleural effusions, no infectious process noted. We did give the patient 125 mg Solu-Medrol. We watched her. She did have some improvement with her breathing. She states to prefer to go home. Her husba nd states that he is okay bring her back if condition worsens. Patient was able to be weaned down from 5 L of oxygen, 4 L of oxygen. I anticipate over the next couple days she'll be able to wean down to 2 L of oxygen. They're to follow-up with Dr. Baez later this week. Patient and her verbalized understanding and agreement with plan. Decision to Disposition Date: Jan 24, 2019 Decision to Disposition Time: 15:55 Depart Departure Latest Vital Signs Vital Signs Date Time Temp Pulse Resp B/P (MAP) Pulse Ox O2 Delivery O2 Flow Rate FiO2 01/24/19 16:00 106 16 141/83 (102) 86 01/24/19 13:17 Nasal Cannula 4.0 01/24/19 12:50 98.3 Impression: Primary Impression: COPD with acute exacerbation Condition: Improved Disposition: HOME OR SELF-CARE Referrals: ZULMA HEAD MD (PCP) New Scripts Ipratropium/Albuterol Sulfate (IPRAT-ALBUT 0.5-3(2.5) MG/3 ML) 3 Ml Ampul.neb 3 ML IH Q4-6H PRN for SHORTNESS OF BREATH, #30 VIAL Prov: GARETT VILLAVICENCIO 01/24/19 Ipratropium/Albuterol Sulfate (IPRAT-ALBUT 0.5-3(2.5) MG/3 ML) 3 Ml Ampul.neb 3 ML IH Q4-6H PRN for SHORTNESS OF BREATH, #20 VIAL Prov: GARETT VILLAVICENCIO 01/24/19 Ipratropium/Albuterol Sulfate (IPRAT-ALBUT 0.5-3(2.5) MG/3 ML) 3 Ml Ampul.neb 3 ML IH Q4-6H PRN for SHORTNESS OF BREATH, #20 VIAL Prov: GARETT VILLAVICENCIO 01/24/19 Methylprednisolone (METHYLPREDNISOLONE) 4 Mg Tab.ds.pk 4 MG PO DIRECTED, #21 TAB Prov: GARETT VILLAVICENCIO 01/24/19 Patient Instructions: COPD (Chronic Obstructive Pulmonary Disease) (ED) Additional Instructions: Increase fluid intake. Get plenty of rest. Follow up with Dr. Head later this week. Return to the ER if condition worsens. Have a low threshold for coming back to the ER. Continue with your current medications. GARETT VILLAVICENCIO Jan 24, 2019 12:53
--- NOTE | 2019-01-24 13:00 | EKG ---
FACILITY: [facility] [place] PATIENT NAME: FRANTZ NAILS : [id number] MR: [id number] V: [id number] EXAM DATE: ORDERING PHYSICIAN: GARETT VILLAVICENCIO TECHNOLOGIST: JEVON Michelle Reason : SOB Blood Pressure : / mmHG Vent. Rate : 082 BPM Atrial Rate : 067 BPM P-R Int : 000 ms QRS Dur : 082 ms QT Int : 386 ms P-R-T Axes : 000 063 058 degrees QTc Int : 450 ms Atrial fibrillation with controlled ventricular response Poor R wave progression anteriorly Nonspecific T wave flattening inferiorly Abnormal ECG Confirmed by KAT COX ([id number] on 01/24/2019 7:38:17 PM Referred By: SAUD Confirmed By:KAT COX
[2019-01-24] MEDS ORDERED: ALBUTEROL/IPRATROPIUM 3 ML NEB NEB ONE (13:10)
[2019-01-24] MEDS ORDERED: NS(*) 0.9% 50 ML BAG 50 ML ONE (13:42)
[2019-01-24] MEDS ORDERED: IOPAMIDOL 76% 100 ML INFUS BTL 100 ML ONE (13:42)
--- NOTE | 2019-01-24 14:36 | RADIOLOGY IMAGING REPORT ---
FACILITY: [facility] PATIENT NAME: Suki Burroughs : 1940 MR: [id number] V: [id number] EXAM DATE: ORDERING PHYSICIAN: GARETT VILLAVICENCIO TECHNOLOGIST: Location: [facility] Patient: Suki Burroughs : 1940 Visit/Account:[id number] Date of Sevice: 01/24/2019 CT angiogram chest with contrast Indication: Shortness of breath. Elevated d-dimer. Comparison: 01/04/2019. Technique: Axial CT images are obtained through the chest after administration of 75 mL Isovue 370 IV contrast. Reformatted coronal and sagittal images were reviewed as well as coronal MIP images. One of the following dose optimization techniques was utilized in the performance of this exam: auto mated exposure control; adjustment of the mA and/or kV according to the patient's size; or use of an iterative reconstruction technique. Specific details can be referenced in the facility's radiology C T exam operational policy. FINDINGS: No evidence of filling defect within the pulmonary vasculature to suggest pulmonary embolus. The heart is upper limits normal for size without pericardial effusion. Aorta valve replacement dudley es. Mild coronary artery calcifications. The aorta shows atherosclerotic calcific changes without ane urysm or dissection. The mediastinum and hilar regions show several small stable lymph nodes. No enla rged lymph nodes or abnormal density. There is no small bilateral pleural effusions associated atelectasis. The posterior medial left lower lobe again shows a 1.7 x 1.0 cm soft tissue mass along the pleural surface. This is similar to the p revious examination. This mass shows no calcifications. The lungs again show emphysematous changes. Mild scarring seen in both lungs. No focal consolidations or pneumothorax. No other nodules. No focal interstitial opacities. Airways are clear. Bony structures show no acute fractures or aggressive bony lesions. Mild degenerative change seen spi ne. Chest wall shows no enlarged axillary lymph nodes or masses. The proximal abdominal aorta does show mild aneurysmal dilatation of 3.2 x 2.8 cm. This area was not imaged previously. There is no acute abnormality or surrounding inflammation/fluid. The upper abdomen is otherwise unremarkable. IMPRESSION: 1. No evidence of pulmonary embolus. 2. There is now bilateral small pleural effusions with associated atelectasis. No focal infiltrate. C ontinued emphysematous changes to the lungs. 3. The posterior medial left lower lobe does show a stable pleural-based 1.7 cm soft tissue mass. No discrete other nodules are identified. On this exam, cannot exclude a neoplasm. 4. 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 5. Other chronic findings as above. Report Dictated By: Anup Samuels at 01/24/2019 2:17 PM Report E-Signed By: Anup Samuels at 01/24/2019 2:29 PM WSN:[id number]
[2019-01-24] MEDS ORDERED: methylPREDNIS SUCC 125 MG/2ML IVP ONE (15:10)
[2019-01-24 16:00] VITALS: BP 141/83
[2019-01-24] MEDS ORDERED: PRED20TA6 PO (16:00)
[2019-01-24] MEDS ORDERED: IPRA3AMP10 IH ×4 (16:00→17:58)
[2019-01-24] MEDS ORDERED: METH4TAB66 PO (16:09)
== END 2019-01-24 16:09 | disposition home or self-care (01) ==
LOC: ER 13:10
DX: J44.1 Chronic obstructive pulmonary disease with (acute) exacerbation (principal)
CPT/HCPCS: 71275; 83880; 84484; 85379; 93005; 94640; 96374; 99284; J2930; J7050; J7620; Q9967

== ENCOUNTER → 2019-02-14 | Outpatient (CLI) | payer MEDICARE, OTHER ==
[~2019-02-14] MED LIST changes: +IPRA3AMP10 IH; +METH4TAB66 PO; +METO50TA19 PO; +POTA-23 PO
== END ==
LOC: SPU 08:29
PROVIDERS: ATTEND Internal Medicine Cardiovascular Disease
DX: I50.32 Chronic diastolic (congestive) heart failure (principal)
CPT/HCPCS: 83880

== ENCOUNTER → 2019-03-01 | Outpatient (CLI) | payer MEDICARE, OTHER | LOC: LAB 09:20 | PROVIDERS: ATTEND Family Medicine | DX: N18.3 Chronic kidney disease, stage 3 (moderate) (principal); Z41.9 Encounter for procedure for purposes other than remedying health state, unspecified; R78.81 Bacteremia | CPT/HCPCS: 36415; 82310; 82374; 82435; 82565; 82947; 84132; 84295; 84520; 85027; 86140; 87040 ==

== ENCOUNTER → 2019-03-07 | Outpatient (CLI) | payer MEDICARE, OTHER | LOC: LAB 09:02 | PROVIDERS: ATTEND Family Medicine | DX: N18.3 Chronic kidney disease, stage 3 (moderate) (principal); R78.81 Bacteremia | CPT/HCPCS: 36415; 82310; 82374; 82435; 82565; 82947; 84132; 84295; 84520; 85027; 86140; 87040 ==